=== PATIENT | male | born 1955 | race Two or more races ===

== ENCOUNTER → 2017-11-01 | Outpatient (CLI) | payer OTHER ==
--- NOTE | 2017-11-03 21:57 | MR ---
EXAMINATION TYPE: MR brain wo/w con DATE OF EXAM: 11/01/2017 COMPARISON: 10/13/2015 HISTORY: dizziness CONTRAST: Performed utilizing 8 mL intravenous Gadavist gadolinium contrast. TECHNIQUE: Multiplanar, multiecho imaging on a 3.0 Ann magnet is performed through the brain. Stud y is performed within 24 hours of arrival to the hospital. The craniovertebral junction is normal. The pituitary is small. Diffusion-weighted imaging is performed. No abnormal hyperintensity is present to suggest an acute i ntracranial infarct or acute ischemic change. There are scattered subcortical white matter changes present throughout the bilateral cerebral hemisp heres. Portion of the optic chiasm visualized appears normal. Optic nerves are unremarkable. Normal v ascular flow voids are visualized within the intracranial cerebral vasculature. Ventricles and sulci are appropriate for the patient age. No abnormal enhancement is evident following contrast administration. IMPRESSIONS: 1. Multiple scattered subcortical white matter changes are nonspecific. Findings can be related to mi crovascular ischemic change or vasculitis. Differential could include other etiologies such as gliosi s and emboli. Multiple sclerosis is not excluded but considered less likely. Findings appear stable f rom comparison of 2015.
== END | disposition home or self-care (01) ==
LOC: RADMRIMAIN 11:41
PROVIDERS: ATTEND Psychiatry & Neurology Neurology
DX: R90.89 Other abnormal findings on diagnostic imaging of central nervous system (principal); R42 Dizziness and giddiness
CPT/HCPCS: 82565; 70553; A9581

== ENCOUNTER → 2017-11-03 | Day surgery (SDC) | payer MEDICARE, OTHER ==
[2017-10-30 10:20] VITALS: BMI 31.2
[~2017-11-03] MED LIST: SODIUM CHLORIDE 0.9% 1,000 ML IV SCH
[2017-11-03 08:39] LABS: Glucose,Whole Blood 120 mg/dL (75-99)
--- NOTE | 2017-11-03 13:54 | P.PCN ---
Preoperative Diagnosis: Symptoms Recurrent dizzy spells/presyncope Twelve-lead ECG Sinus rhythm normal DE narrow QRS left anterior fascicular block normal QT interval no delta waves no epsilon waves Tilt table test per protocol Baseline blood pressure 143/74 mmHg Baseline heart rate 88 beats a minute Patient was [facility] degrees per protocol no change in heart her blood pressure and he is laid supine at the end of the procedure Impression Normal heart rate and blood pressure response to upright tilting Sinus rhythm on twelve-lead ECG the left anterior fascicular block normal QT interval Condition: stable
== END ==
LOC: CATHEP 07:18
PROVIDERS: ATTEND Internal Medicine Clinical Cardiac Electrophysiology
DX: R55 Syncope and collapse (principal)
CPT/HCPCS: 93660

== ENCOUNTER 2017-12-19 08:24 | Inpatient (IN) | payer MEDICARE, OTHER ==
[~2017-12-19 08:24] MED LIST changes: +LIDOCAINE 1% INJ 10MG/ML (20 ML MDV) ONE; +MIDAZOLAM 2 MG/2 ML VIAL ONE; +PROPOFOL 10 MG/ML 20 ML VIAL IV ONE; -SODIUM CHLORIDE 0.9% 1,000 ML IV SCH; +fentaNYL (PF) 50 MCG/ML 2 ML AMP ONE
[2017-12-19] MEDS ORDERED: ONDANSETRON 4 MG/2 ML VIAL IVP STA (08:40)
[2017-12-19] MEDS ORDERED: PANTOPRAZOLE 40 MG/10 ML VIAL IVP STA (08:40)
[2017-12-19] MEDS ORDERED: SODIUM CHLORIDE 0.9% 2,000 ML IV STA (08:40)
[2017-12-19] MEDS ORDERED: MORPHINE SULFATE 2 MG/ML SYRINGE IVP ONE (08:40)
--- NOTE | 2017-12-19 08:44 | ED ---
Nausea/Vomiting/Diarrhea HPI - General Chief complaint: Nausea/Vomiting/Diarrhea Stated complaint: vomiting Time Seen by Provider: 12/19/17 08:33 Source: patient, RN notes reviewed Mode of arrival: wheelchair Limitations: no limitations - History of Present Illness Initial comments: This is a 62-year-old male presents emergency Department chief complaint of nausea vomiting diarrhea abdominal pain for 4 days. Patient states he about this started having vomiting 4 days ago and has progressively worsened. He states that he cannot keep anything down he had no periods of time where he is improved. He states he's had no hematemesis or coffee-ground emesis. Patient states that he hurts head to toe states he has abdominal pain, back pain, chest pain, headache and dizziness. Patient states that he is in no contacts with some her symptoms. Denies any melena arm and she is a. He's had no dysuria no hematuria. Patient has a known diabetic states that he is on insulin. Patient states she has no localized pain. - Related Data Home Medications Medication Instructions Recorded Confirmed Ferrous Sulfate [Feosol] 325 mg PO DAILY 01/19/14 12/19/17 Flecainide [Tambocor] 100 mg PO BID 01/19/14 12/19/17 Folic Acid 1 mg PO DAILY 01/19/14 12/19/17 Gabapentin 600 mg PO TID 01/19/14 12/19/17 Insulin Glargine [Lantus] 10 units SQ HS 01/19/14 12/19/17 Lisinopril [Zestril] 10 mg PO DAILY 01/19/14 12/19/17 Multivitamins, Thera [Multivitamin 1 tab PO DAILY 01/19/14 12/19/17 (formulary)] Thiamine [Vitamin B-1] 100 mg PO DAILY 01/19/14 12/19/17 predniSONE 5 mg PO DAILY 01/19/14 12/19/17 Adalimumab [Humira Crohn's] 40 mg SQ Q14D 12/19/17 12/19/17 Amitriptyline HCl [Elavil] 25 mg PO HS 12/19/17 12/19/17 Ascorbic Acid [Vitamin C] 500 mg PO DAILY 12/19/17 12/19/17 Furosemide [Lasix] 40 mg PO DAILY 12/19/17 12/19/17 Glycerin/Propylene Glycol 15 ml BOTH EYES QID 10/12/18 10/12/18 [Artificial Tears Drops] HYDROcodone/APAP 10-325MG [[place] 2 tab PO QID PRN 12/19/17 12/19/17 10-325] Latanoprost/Pf [Latanoprost 0.005% 1 drop BOTH EYES HS 12/19/17 12/19/17 Eye Drop] Lidocaine [Lidoderm 5% Patch] 1 patch TRANSDERM DAILY 12/19/17 12/19/17 Melatonin 5 mg PO HS 12/19/17 12/19/17 Metoprolol Tartrate [Lopressor] 50 mg PO BID 12/19/17 12/19/17 Omeprazole 40 mg PO DAILY 12/19/17 12/19/17 Sertraline HCl [Zoloft] 100 mg PO DAILY 12/19/17 12/19/17 Simvastatin [Zocor] 10 mg PO HS 12/19/17 12/19/17 sulfaSALAzine [Azulfidine] 1,000 mg PO BID 12/19/17 12/19/17 Allergies Allergy/AdvReac Type Severity Reaction Status Date / Time No Known Allergies Allergy Verified 12/19/17 08:30 Review of Systems ROS Statement: Those systems with pertinent positive or pertinent negative responses have been documented in the HPI. ROS Other: All systems not noted in ROS Statement are negative. Past Medical History Past Medical History: Atrial Fibrillation, Chest Pain / Angina, COPD, Diabetes Mellitus, Eye Disorder, GERD/Reflux, GI Bleed, Hypertension, Liver Disease, Pneumonia, Renal Disease, Seizure Disorder, Sleep Apnea/CPAP/BIPAP Additional Past Medical History / Comment(s): see dr peñaloza's H&P. last seizure 3-4 yrs ago, was told he had the beginnings of "tunnel vision". FX VERTEBRE History of Any Multi-Drug Resistant Organisms: None Reported Past Surgical History: Back Surgery, Cholecystectomy, Orthopedic Surgery Additional Past Surgical History / Comment(s): lt shoulder arthrotomy, colonoscopy, lt rotator cuff surgery with hardware, bilat cataract, nephrectomy for kidney donation, BACK SX FOR FRACTURED DISCS(DONE IN [place]) Past Anesthesia/Blood Transfusion Reactions: No Reported Reaction Past Psychological History: Anxiety, Depression, PTSD Smoking Status: Former smoker Past Alcohol Use History: None Reported Past Drug Use History: None Reported - Past Family History Father Family Medical History: Diabetes Mellitus, Myocardial Infarction ([place]) Additional Family Medical History / Comment(s): AT AGE 87 Mother Family Medical History: No Reported History Additional Family Medical History / Comment(s): AT AGE 76 General Exam Limitations: no limitations General appearance: alert, in no apparent distress Head exam: Present: atraumatic, normocephalic, normal inspection Eye exam: Present: normal appearance, PERRL, EOMI. Absent: scleral icterus, conjunctival injection, periorbital swelling ENT exam: Present: normal oropharynx, mucous membranes dry. Absent: normal exam Neck exam: Present: normal inspection, full ROM. Absent: tenderness, meningismus, lymphadenopathy Respiratory exam: Present: normal lung sounds bilaterally. Absent: respiratory distress, wheezes, rales, rhonchi, stridor Cardiovascular Exam: Present: normal rhythm, tachycardia, normal heart sounds. Absent: systolic murmur, diastolic murmur, rubs, gallop, clicks GI/Abdominal exam: Present: soft, tenderness (Diffuse moderate), normal bowel sounds. Absent: distended, guarding, rebound, rigid Skin exam: Present: warm, dry, intact, normal color. Absent: rash Course Vital Signs 12/19/17 08:27 Temperature 96.0 F L Pulse Rate 123 H Respiratory 18 Rate Blood Pressure 132/86 O2 Sat by Pulse 96 Oximetry Medical Decision Making - Lab Data Result diagrams: 12/19/17 08:45 12/19/17 08:45 Lab Results 12/19/17 12/19/17 12/19/17 Range/Units 08:45 08:45 08:45 WBC 21.1 H (3.8-10.6) k/uL RBC 4.85 (4.30-5.90) m/uL Hgb 15.4 (13.0-17.5) gm/dL Hct 48.4 (39.0-53.0) % MCV 99.7 (80.0-100.0) fL MCH 31.8 (25.0-35.0) pg MCHC 31.9 (31.0-37.0) g/dL RDW 13.3 (11.5-15.5) % Plt Count 332 (150-450) k/uL Neutrophils % 81 % Lymphocytes % 9 % Monocytes % 7 % Eosinophils % 1 % Basophils % 0 % Neutrophils # 17.1 H (1.3-7.7) k/uL Lymphocytes # 1.9 (1.0-4.8) k/uL Monocytes # 1.5 H (0-1.0) k/uL Eosinophils # 0.1 (0-0.7) k/uL Basophils # 0.1 (0-0.2) k/uL VBG pH 7.33 (7.31-7.41) VBG pCO2 27 L (37-51) mmHg VBG HCO3 14 L (24-28) mmol/L Sodium 138 (137-145) mmol/L Potassium 4.2 (3.5-5.1) mmol/L Chloride 98 (98-107) mmol/L Carbon Dioxide 13 L (22-30) mmol/L Anion Gap 27 mmol/L BUN 40 H (9-20) mg/dL Creatinine 4.83 H (0.66-1.25) mg/dL Est GFR (CKD-EPI)AfAm 14 (>60 ml/min/1.73 sqM) Est GFR (CKD-EPI)NonAf 12 (>60 ml/min/1.73 sqM) Glucose 214 H (74-99) mg/dL POC Glucose (mg/dL) (75-99) mg/dL POC Glu [employer] ID Plasma Lactic Acid Billy (0.7-2.0) mmol/L Calcium 9.7 (8.4-10.2) mg/dL Total Bilirubin 0.6 (0.2-1.3) mg/dL AST 45 (17-59) U/L ALT 71 (21-72) U/L Alkaline Phosphatase 124 (38-126) U/L Troponin I (0.000-0.034) ng/mL Total Protein 9.5 H (6.3-8.2) g/dL Albumin 5.3 H (3.5-5.0) g/dL Amylase 108 (30-110) U/L Lipase 156 (23-300) U/L 12/19/17 12/19/17 12/19/17 Range/Units 08:45 08:45 08:47 WBC (3.8-10.6) k/uL RBC (4.30-5.90) m/uL Hgb (13.0-17.5) gm/dL Hct (39.0-53.0) % MCV (80.0-100.0) fL MCH (25.0-35.0) pg MCHC (31.0-37.0) g/dL RDW (11.5-15.5) % Plt Count (150-450) k/uL Neutrophils % % Lymphocytes % % Monocytes % % Eosinophils % % Basophils % % Neutrophils # (1.3-7.7) k/uL Lymphocytes # (1.0-4.8) k/uL Monocytes # (0-1.0) k/uL Eosinophils # (0-0.7) k/uL Basophils # (0-0.2) k/uL VBG pH (7.31-7.41) VBG pCO2 (37-51) mmHg VBG HCO3 (24-28) mmol/L Sodium (137-145) mmol/L Potassium (3.5-5.1) mmol/L Chloride (98-107) mmol/L Carbon Dioxide (22-30) mmol/L Anion Gap mmol/L BUN (9-20) mg/dL Creatinine (0.66-1.25) mg/dL Est GFR (CKD-EPI)AfAm (>60 ml/min/1.73 sqM) Est GFR (CKD-EPI)NonAf (>60 ml/min/1.73 sqM) Glucose (74-99) mg/dL POC Glucose (mg/dL) 202 H (75-99) mg/dL POC Glu [employer] ID Woodrow Ruiz Plasma Lactic Acid Billy 3.3 H* (0.7-2.0) mmol/L Calcium (8.4-10.2) mg/dL Total Bilirubin (0.2-1.3) mg/dL AST (17-59) U/L ALT (21-72) U/L Alkaline Phosphatase (38-126) U/L Troponin I 0.029 (0.000-0.034) ng/mL Total Protein (6.3-8.2) g/dL Albumin (3.5-5.0) g/dL Amylase (30-110) U/L Lipase (23-300) U/L Disposition Clinical Impression: Acute renal failure, Dehydration, Gastroparesis, Nausea & vomiting, Abdominal pain, High anion gap metabolic acidosis Disposition: ADMITTED IP TO THIS HOSP Condition: Fair Referrals: [facility],Clinic [Primary Care Provider] - 1-2 days
[2017-12-19 08:54] LABS: Glucose,Whole Blood 202 mg/dL (75-99)
[2017-12-19 08:56] LABS: Basophils # (A) 0.1 k/uL (0-0.2); Basophils % (A) 0 %; Eosinophils # (A) 0.1 k/uL (0-0.7); Eosinophils % (A) 1 %; HCT 48.4 % (39.0-53.0); HGB 15.4 gm/dL (13.0-17.5); Lymphocytes # (A) 1.9 k/uL (1.0-4.8); Lymphocytes % (A) 9 %; MCH 31.8 pg (25.0-35.0); MCHC 31.9 g/dL (31.0-37.0); MCV 99.7 fL (80.0-100.0); Mean Platelet Volume 7.4; Monocytes # (A) 1.5 k/uL (0-1.0); Monocytes % (A) 7 %; Neutrophils # (A) 17.1 k/uL (1.3-7.7); Neutrophils % (A) 81 %; Platelet Count 332 k/uL (150-450); RBC 4.85 m/uL (4.30-5.90); RDW 13.3 % (11.5-15.5); WBC 21.1 k/uL (3.8-10.6)
[2017-12-19 09:00] LABS: VBG PH 7.33 (7.31-7.41)
[2017-12-19 09:13] LABS: Albumin 5.3 g/dL (3.5-5.0); Calcium 9.7 mg/dL (8.4-10.2); Total Bilirubin 0.6 mg/dL (0.2-1.3); Total Protein 9.5 g/dL (6.3-8.2)
[2017-12-19 09:17] LABS: Potassium 4.2 mmol/L (3.5-5.1)
--- NOTE | 2017-12-19 10:04 | CT ---
EXAMINATION TYPE: CT abdomen pelvis wo con DATE OF EXAM: 12/19/2017 HISTORY: Vomiting x4 days CT DLP: 547.20 mGycm. Automated Exposure Control for Dose Reduction was Utilized. TECHNIQUE: CT scan of the abdomen and pelvis is performed without oral or IV contrast. COMPARISON: CT abdomen and pelvis February 18, 2010 FINDINGS: Within the limitations of a non-contrast study, the following observations are made. LUNG BASES: No significant abnormality is appreciated. LIVER/GB: Cholecystectomy clips are redemonstrated. PANCREAS: No significant abnormality is seen. SPLEEN: Surgical clip posterior to the spleen is redemonstrated axial image 32. ADRENALS: No significant abnormality is seen. KIDNEYS: Left kidney is not visualized and presumed surgically absent similar to prior some clips are present at level of left renal bed. BOWEL: Normal-appearing appendix is seen from cecum in the right lower quadrant. There is no suspicio us small or large bowel dilatation. There is distended stomach and prominence of the first and second portion of duodenal sweep. SMA angle does not appear suspiciously acute on sagittal image 65. GENITAL ORGANS: Prostate gland is slightly enlarged in size bulging on bladder base, underlying BPH i s felt present. No significant change from prior. LYMPH NODES: No greater than 1cm abdominal or pelvic lymph nodes are appreciated. OSSEOUS STRUCTURES: There is vacuum disc phenomenon with mild to moderate disc space narrowing L5-S1 level. Prominent Schmorl node superior L2 endplate. There is prior vertebroplasty at area of advanced compression involving the T9 vertebra and vertebroplasty involving posterior T7 vertebra that is mod erately compressed. Some right lateral extension at T9 level is noted. OTHER: No significant additional abnormality is seen. IMPRESSION: No small or large bowel obstruction is seen. Distended stomach raises concern for gastrop aresis. Distention of proximal half of duodenum raises concern for SMA syndrome though SMA angle is f elt within normal limits on CT. Consider nasogastric tube decompression.
[2017-12-19] MEDS ORDERED: HYDROmorphone 1 MG/ML 1 ML SYRINGE IVP STA (10:58)
[2017-12-19 11:04] LABS: Appearance,Urine Cloudy (Clear); Bacteria,Urine Occasional /hpf; Bilirubin,Urine Negative (Negative); Blood,Urine Moderate (Negative); Color,Urine Yellow; Glucose,Urine (UA) 1+ (Negative); Granular Casts,Urine 6 /lpf (0); Hyaline Casts,Urine 35 /lpf (0-2); Ketones,Urine Negative (Negative); Leukocyte Esterase,Urine Negative (Negative); Mucus,Urine Rare /hpf; Nitrite,Urine Negative (Negative); PH, Urine 5.5 (5.0-8.0); Protein,Urine 2+ (Negative); RBC,Urine 4 /hpf (0-5); Specific Gravity,Urine 1.019 (1.001-1.035); Urobilinogen,Urine <2.0 mg/dL (<2.0); WBC,Urine 75 /hpf (0-5); White Blood Cell Casts,Urine 23 /lpf (0)
[2017-12-19] MEDS ORDERED: NALOXONE 0.4 MG/ML 1 ML VIAL IV PRN (11:05)
[2017-12-19] MEDS ORDERED: ONDANSETRON 4 MG/2 ML VIAL IVP PRN (11:05)
[2017-12-19] MEDS ORDERED: cefTRIAXone 2,000 MG in SODIUM CHLORIDE 0.9% 100 ML IVPB STA (11:41)
[2017-12-19 12:26] LABS: Glucose,Whole Blood 114 mg/dL (75-99)
[2017-12-19] MEDS: INSULIN ASPART 100 UNIT/ML 1 ML 10 ML VIAL SQ SCH ×3 (12:36→20:53)
[2017-12-19] MEDS: SODIUM CHLORIDE 0.9% 1,000 ML IV SCH ×2 (12:37→18:46)
[2017-12-19] MEDS ORDERED: ADALIMUMAB 80 MG/1.6 ML KIT SQ SCH (13:15)
[2017-12-19] MEDS: HYDROmorphone 1 MG/ML 1 ML SYRINGE IVP PRN ×3 (15:14→21:34)
[2017-12-19] MEDS: GABAPENTIN 100 MG CAP PO SCH ×2 (15:15→21:21)
[2017-12-19] MEDS: FAMOTIDINE 20 MG/2 ML VIAL IV SCH ×2 (15:16→21:23)
--- NOTE | 2017-12-19 15:58 | P.HPIM ---
History of Present Illness 62-year-old male came to the emergency department compressive nausea vomiting diarrhea has been going on for about the right to 7 days. Patient denied any recent aromatic use C. diff will be obtained the patient is found to have highly elevated creatinine of around 4 baseline creatinine around 0.9. Patient is also on Lasix and lisinopril patient does have history of atrial fibrillation does have rheumatoid arthritis patient is on 9 immunosuppressive therapy patient does have leukocytosis denied any fever chills, hematemesis and a cheesy a patient was comparing of some epigastric abdominal burning sensation patient is on prednisone at home. Patient had a CAT scan of the abdomen which is suspicious for SMA syndrome and a distended stomach patient will need an NG tube NG tube will be placed and the probably will need a surgical consultation as well. Review of Systems REVIEW OF SYSTEMS: CONSTITUTIONAL: No fever, no malaise, no fatigue. HEENT: No recent visual problems or hearing problems. Denied any sore throat. CARDIOVASCULAR: No chest pain, orthopnea, PND, no palpitations, no syncope. PULMONARY: No shortness of breath, no cough, no hemoptysis. GASTROINTESTINAL: As mentioned in HPI NEUROLOGICAL: No headaches, no weakness, no numbness. HEMATOLOGICAL: Denies any bleeding or petechiae. GENITOURINARY: Denies any burning micturition, frequency, or urgency. MUSCULOSKELETAL/RHEUMATOLOGICAL: Denies any joint pain, swelling, or any muscle pain. ENDOCRINE: Denies any polyuria or polydipsia. The rest of the 14-point review of systems is negative. 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 History of Any Multi-Drug Resistant Organisms: None Reported Past Surgical History: Back Surgery, Cholecystectomy, Ear Surgery, Orthopedic Surgery Additional Past Surgical History / Comment(s): lt shoulder arthrotomy, colonoscopy/benign polyp, lt rotator cuff surgery with hardware, bilat cataract , L nephrectomy for kidney donation, BACK SX FOR FRACTURED DISCS(DONE IN [place]), TTT, L ear surgery-pt cannot recall type of surgery. Past Anesthesia/Blood Transfusion Reactions: No Reported Reaction Smoking Status: Former smoker - Past Family History Father Family Medical History: Diabetes Mellitus, Myocardial Infarction ([place]) Additional Family Medical History / Comment(s): AT AGE 87 Mother History Unknown: Yes Family Medical History: No Reported History Additional Family Medical History / Comment(s): AT AGE 76. Pt states his mother did not discuss her health. Medications and Allergies Home Medications Medication Instructions Recorded Confirmed Type Ferrous Sulfate [Feosol] 325 mg PO DAILY 01/19/14 12/19/17 History Flecainide [Tambocor] 100 mg PO BID 01/19/14 12/19/17 History Folic Acid 1 mg PO DAILY 01/19/14 12/19/17 History Gabapentin 600 mg PO TID 01/19/14 12/19/17 History Insulin Glargine [Lantus] 10 units SQ HS 01/19/14 12/19/17 History Lisinopril [Zestril] 10 mg PO DAILY 01/19/14 12/19/17 History Multivitamins, Thera [Multivitamin 1 tab PO DAILY 01/19/14 12/19/17 History (formulary)] Thiamine [Vitamin B-1] 100 mg PO DAILY 01/19/14 12/19/17 History predniSONE 5 mg PO DAILY 01/19/14 12/19/17 History Adalimumab [Humira Crohn's] 40 mg SQ Q14D 12/19/17 12/19/17 History Amitriptyline HCl [Elavil] 25 mg PO HS 12/19/17 12/19/17 History Ascorbic Acid [Vitamin C] 500 mg PO DAILY 12/19/17 12/19/17 History Furosemide [Lasix] 40 mg PO DAILY 12/19/17 12/19/17 History Glycerin/Propylene Glycol 15 ml BOTH EYES QID 12/19/17 12/19/17 History [Artificial Tears Drops] HYDROcodone/APAP 10-325MG [[place] 2 tab PO QID PRN 12/19/17 12/19/17 History 10-325] Latanoprost/Pf [Latanoprost 0.005% 1 drop BOTH EYES HS 12/19/17 12/19/17 History Eye Drop] Lidocaine [Lidoderm 5% Patch] 1 patch TRANSDERM DAILY 12/19/17 12/19/17 History Melatonin 5 mg PO HS 12/19/17 12/19/17 History Metoprolol Tartrate [Lopressor] 50 mg PO BID 12/19/17 12/19/17 History Omeprazole 40 mg PO DAILY 12/19/17 12/19/17 History Sertraline HCl [Zoloft] 100 mg PO DAILY 12/19/17 12/19/17 History Simvastatin [Zocor] 10 mg PO HS 12/19/17 12/19/17 History sulfaSALAzine [Azulfidine] 1,000 mg PO BID 12/19/17 12/19/17 History Allergies Allergy/AdvReac Type Severity Reaction Status Date / Time No Known Allergies Allergy Verified 12/19/17 08:30 Physical Exam Vitals: Vital Signs Temp Pulse Resp BP Pulse Ox 12/19/17 11:44 98.1 F 87 20 143/83 98 12/19/17 08:27 96.0 F L 123 H 18 132/86 96 Intake and Output 12/18/17 12/19/17 12/19/17 22:59 06:59 14:59 Other: Voiding Method Toilet Weight 78.471 kg PHYSICAL EXAMINATION: GENERAL: The patient is alert and oriented x3, not in any acute distress. Well developed, well nourished. HEENT: Pupils are round and equally reacting to light. EOMI. No scleral icterus. No conjunctival pallor. Normocephalic, atraumatic. No pharyngeal erythema. No thyromegaly. CARDIOVASCULAR: S1 and S2 present. No murmurs, rubs, or gallops. PULMONARY: Chest is clear to auscultation, no wheezing or crackles. ABDOMEN: There is little bit of distention no significant tenderness no rebound or rigidity. MUSCULOSKELETAL: No joint swelling or deformity. EXTREMITIES: No cyanosis, clubbing, or pedal edema. NEUROLOGICAL: Gross neurological examination did not reveal any focal deficits. SKIN: No rashes. Results CBC & Chem 7: 12/19/17 08:45 12/19/17 08:45 Labs: Abnormal Lab Results - Last 24 Hours (Table) 18 12/19/17 12/19/17 Range/Units 08:45 08:45 08:45 WBC 21.1 H (3.8-10.6) k/uL Neutrophils # 17.1 H (1.3-7.7) k/uL Monocytes # 1.5 H (0-1.0) k/uL VBG pCO2 27 L (37-51) mmHg VBG HCO3 14 L (24-28) mmol/L Carbon Dioxide 13 L (22-30) mmol/L BUN 40 H (9-20) mg/dL Creatinine 4.83 H (0.66-1.25) mg/dL Glucose 214 H (74-99) mg/dL POC Glucose (mg/dL) (75-99) mg/dL Plasma Lactic Acid Billy (0.7-2.0) mmol/L Total Protein 9.5 H (6.3-8.2) g/dL Albumin 5.3 H (3.5-5.0) g/dL Urine Protein (Negative) Urine Glucose (UA) (Negative) Urine Blood (Negative) Urine WBC (0-5) /hpf Urine WBC Clumps (None) /hpf Urine Bacteria (None) /hpf Hyaline Casts (0-2) /lpf Urine Mucus (None) /hpf 18 12/19/17 12/19/17 Range/Units 08:45 08:47 10:25 WBC (3.8-10.6) k/uL Neutrophils # (1.3-7.7) k/uL Monocytes # (0-1.0) k/uL VBG pCO2 (37-51) mmHg VBG HCO3 (24-28) mmol/L Carbon Dioxide (22-30) mmol/L BUN (9-20) mg/dL Creatinine (0.66-1.25) mg/dL Glucose (74-99) mg/dL POC Glucose (mg/dL) 202 H (75-99) mg/dL Plasma Lactic Acid Billy 3.3 H* (0.7-2.0) mmol/L Total Protein (6.3-8.2) g/dL Albumin (3.5-5.0) g/dL Urine Protein 2+ H (Negative) Urine Glucose (UA) 1+ H (Negative) Urine Blood Moderate H (Negative) Urine WBC 75 H (0-5) /hpf Urine WBC Clumps Many H (None) /hpf Urine Bacteria Occasional H (None) /hpf Hyaline Casts 35 H (0-2) /lpf Urine Mucus Rare H (None) /hpf 12/19/17 Range/Units 12:05 WBC (3.8-10.6) k/uL Neutrophils # (1.3-7.7) k/uL Monocytes # (0-1.0) k/uL VBG pCO2 (37-51) mmHg VBG HCO3 (24-28) mmol/L Carbon Dioxide (22-30) mmol/L BUN (9-20) mg/dL Creatinine (0.66-1.25) mg/dL Glucose (74-99) mg/dL POC Glucose (mg/dL) 114 H (75-99) mg/dL Plasma Lactic Acid Billy (0.7-2.0) mmol/L Total Protein (6.3-8.2) g/dL Albumin (3.5-5.0) g/dL Urine Protein (Negative) Urine Glucose (UA) (Negative) Urine Blood (Negative) Urine WBC (0-5) /hpf Urine WBC Clumps (None) /hpf Urine Bacteria (None) /hpf Hyaline Casts (0-2) /lpf Urine Mucus (None) /hpf Thrombosis Risk Factor Assmnt - Choose All That Apply Any of the Below Risk Factors Present?: Yes Each Factor Represents 1 point: Abnormal pulmonary function (COPD), Obesity ( BMI >25) Other Risk Factors: Yes Each Risk Factor Represents 2 Points: Age 61-74 years Other congenital or acquired thrombophilia - If yes, enter type in comment: No Thrombosis Risk Factor Assessment Total Risk Factor Score: 4 Thrombosis Risk Factor Assessment Level: Moderate Risk Assessment and Plan Plan: -Nausea vomiting: Possibly of SMA syndrome. NG tube will replace surgery will be consulted. Patient is also company of odynophagia concern for esophagitis specifically families waited is although patient does not have any oral thrush. -Abdominal pain possibly secondary to SMA syndrome or peptic ulcer disease. Gastric body will be consulted patient will be started on Pepcid instead of proton pump limited considering his poor renal function -Acute renal failure secondary to nausea vomiting diarrhea prerenal azotemia patient was started on IV fluids next and-lactic acidosis due to severe intravascular depletion improved now with IV fluid resuscitation -Diarrhea: We will rule out C. diff -Type 2 diabetes mellitus: Patient will be started on sliding scale insulin discontinue Lantus as patient is in a BNP 1 patient is a low-dose of Lantus -Rheumatoid arthritis: Patient is on immunosuppressive therapy which will be continued along with prednisone -Hyperlipidemia -Atrial fibrillation: Presently rate controlled when I may not be able to start him on anticoagulation considering that patient will have an NG tube at this time -Seizure disorder -Sleep apnea on continuous CPAP machine
[2017-12-19 17:04] LABS: Glucose,Whole Blood 125 mg/dL (75-99)
[2017-12-19] MEDS ORDERED: ZOLPIDEM 5 MG TAB PO PRN (19:32)
[2017-12-19] MEDS: BENZOCAINE SPRAY 1 CAN MUCOUS MEM PRN ×2 (19:35→21:21)
[2017-12-19 20:40] LABS: Glucose,Whole Blood 119 mg/dL (75-99)
[2017-12-19] MEDS: sulfaSALAzine 500 MG TAB PO SCH (21:22)
[2017-12-19] MEDS: LATANOPROST 0.005% OPHTH DROPS 2.5 ML BTL BOTH EYES SCH (21:22)
[2017-12-19] MEDS: MELATONIN 5 MG TABLET PO SCH (21:22)
[2017-12-19] MEDS: ATORVASTATIN 10 MG TAB PO SCH (21:23)
[2017-12-19] MEDS: METOPROLOL TARTRATE 50 MG TAB PO SCH (21:23)
[2017-12-19] MEDS: FLECAINIDE 50 MG TAB PO SCH (21:23)
[2017-12-19] MEDS: AMITRIPTYLINE HCL 25 MG TAB PO SCH (21:23)
[2017-12-20] MEDS: HYDROmorphone 1 MG/ML 1 ML SYRINGE IVP PRN ×7 (00:10→21:31)
[2017-12-20 05:58] LABS: Glucose,Whole Blood 117 mg/dL (75-99)
[2017-12-20] MEDS: INSULIN ASPART 100 UNIT/ML 1 ML 10 ML VIAL SQ SCH ×4 (06:10→20:52)
[2017-12-20 07:12] LABS: Calcium 8.3 mg/dL (8.4-10.2); Potassium 4.8 mmol/L (3.5-5.1)
[2017-12-20 07:56] LABS: HCT 39.3 % (39.0-53.0); MCHC 31.6 g/dL (31.0-37.0); MCV 101.1 fL (80.0-100.0); Mean Platelet Volume 7.3; Platelet Count 236 k/uL (150-450); RBC 3.89 m/uL (4.30-5.90); RDW 13.2 % (11.5-15.5); WBC 19.4 k/uL (3.8-10.6)
[2017-12-20 08:01] LABS: HGB 12.4 gm/dL (13.0-17.5)
[2017-12-20] MEDS: SODIUM CHLORIDE 0.9% 1,000 ML IV SCH ×2 (08:14→11:35)
[2017-12-20] MEDS: MULTIVITAMINS, THERA 1 EACH TAB PO SCH (08:14)
[2017-12-20] MEDS: FOLIC ACID 1 MG TAB PO SCH (08:16)
[2017-12-20] MEDS: THIAMINE 100 MG TAB PO SCH (08:16)
[2017-12-20] MEDS: LIDOCAINE 5% PATCH TOPICAL SCH (08:22)
[2017-12-20] MEDS: FAMOTIDINE 20 MG/2 ML VIAL IV SCH ×2 (08:22→21:33)
[2017-12-20] MEDS: BENZOCAINE SPRAY 1 CAN MUCOUS MEM PRN ×3 (08:22→21:32)
[2017-12-20] MEDS: sulfaSALAzine 500 MG TAB PO SCH ×2 (08:22→21:33)
[2017-12-20] MEDS: FLECAINIDE 50 MG TAB PO SCH ×2 (08:23→21:32)
[2017-12-20] MEDS: GABAPENTIN 100 MG CAP PO SCH ×3 (08:23→21:33)
[2017-12-20] MEDS: METOPROLOL TARTRATE 50 MG TAB PO SCH ×2 (08:23→21:33)
[2017-12-20] MEDS: predniSONE 5 MG TAB PO SCH (08:24)
--- NOTE | 2017-12-20 09:07 | P.GSCN ---
History of Present Illness Consult date: 12/20/17 Reason for Consult: Possible gastric obstruction History of present illness: This a 62-year-old male who was admitted to the hospital with a 45 day history of nausea vomiting and epigastric dull pain. Patient was seen in the emergency room and on CAT scan as well as have a dilated stomach. And dilated proximal duodenum. This was suggestive of possible SMA syndrome. The patient states that he has had nausea vomiting for several days. His BMI is 28. 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 History of Any Multi-Drug Resistant Organisms: None Reported Past Surgical History: Back Surgery, Cholecystectomy, Ear Surgery, Orthopedic Surgery Additional Past Surgical History / Comment(s): lt shoulder arthrotomy, colonoscopy/benign polyp, lt rotator cuff surgery with hardware, bilat cataract , L nephrectomy for kidney donation, BACK SX FOR FRACTURED DISCS(DONE IN [place]), TTT, L ear surgery-pt cannot recall type of surgery. Past Anesthesia/Blood Transfusion Reactions: No Reported Reaction Smoking Status: Former smoker - Past Family History Father Family Medical History: Diabetes Mellitus, Myocardial Infarction ([place]) Additional Family Medical History / Comment(s): AT AGE 87 Mother History Unknown: Yes Family Medical History: No Reported History Additional Family Medical History / Comment(s): AT AGE 76. Pt states his mother did not discuss her health. Medications and Allergies Home Medications Medication Instructions Recorded Confirmed Type Ferrous Sulfate [Feosol] 325 mg PO DAILY 01/19/14 12/19/17 History Flecainide [Tambocor] 100 mg PO BID 01/19/14 12/19/17 History Folic Acid 1 mg PO DAILY 01/19/14 12/19/17 History Gabapentin 600 mg PO TID 01/19/14 12/19/17 History Insulin Glargine [Lantus] 10 units SQ HS 01/19/14 12/19/17 History Lisinopril [Zestril] 10 mg PO DAILY 01/19/14 12/19/17 History Multivitamins, Thera [Multivitamin 1 tab PO DAILY 01/19/14 12/19/17 History (formulary)] Thiamine [Vitamin B-1] 100 mg PO DAILY 01/19/14 12/19/17 History predniSONE 5 mg PO DAILY 01/19/14 12/19/17 History Adalimumab [Humira Crohn's] 40 mg SQ Q14D 12/19/17 12/19/17 History Amitriptyline HCl [Elavil] 25 mg PO HS 12/19/17 12/19/17 History Ascorbic Acid [Vitamin C] 500 mg PO DAILY 12/19/17 12/19/17 History Furosemide [Lasix] 40 mg PO DAILY 12/19/17 12/19/17 History Glycerin/Propylene Glycol 15 ml BOTH EYES QID 12/19/17 12/19/17 History [Artificial Tears Drops] HYDROcodone/APAP 10-325MG [[place] 2 tab PO QID PRN 12/19/17 12/19/17 History 10-325] Latanoprost/Pf [Latanoprost 0.005% 1 drop BOTH EYES HS 12/19/17 12/19/17 History Eye Drop] Lidocaine [Lidoderm 5% Patch] 1 patch TRANSDERM DAILY 12/19/17 12/19/17 History Melatonin 5 mg PO HS 12/19/17 12/19/17 History Metoprolol Tartrate [Lopressor] 50 mg PO BID 12/19/17 12/19/17 History Omeprazole 40 mg PO DAILY 12/19/17 12/19/17 History Sertraline HCl [Zoloft] 100 mg PO DAILY 12/19/17 12/19/17 History Simvastatin [Zocor] 10 mg PO HS 12/19/17 12/19/17 History sulfaSALAzine [Azulfidine] 1,000 mg PO BID 12/19/17 12/19/17 History Allergies Allergy/AdvReac Type Severity Reaction Status Date / Time No Known Allergies Allergy Verified 12/19/17 08:30 Surgical - Exam Vital Signs Temp Pulse Resp BP Pulse Ox 96.0 F L 123 H 18 132/86 96 12/19/17 08:27 12/19/17 08:27 12/19/17 08:27 12/19/17 08:27 12/19/17 08:27 - General well developed, no distress - Eyes PERRL - ENT normal pinna - Neck no masses - Respiratory normal expansion - Cardiovascular Rhythm: regular - Abdomen Mild epigastric pain Abdomen: soft Results - Labs 12/20/17 06:44 12/20/17 06:44 Abnormal Lab Results - Last 24 Hours (Table) 12/19/17 12/19/17 12/19/17 Range/Units 08:45 08:45 10:25 WBC (3.8-10.6) k/uL RBC (4.30-5.90) m/uL Hgb (13.0-17.5) gm/dL MCV (80.0-100.0) fL Carbon Dioxide 13 L (22-30) mmol/L BUN 40 H (9-20) mg/dL Creatinine 4.83 H (0.66-1.25) mg/dL Glucose 214 H (74-99) mg/dL POC Glucose (mg/dL) (75-99) mg/dL Plasma Lactic Acid Billy 3.3 H* (0.7-2.0) mmol/L Calcium (8.4-10.2) mg/dL Total Protein 9.5 H (6.3-8.2) g/dL Albumin 5.3 H (3.5-5.0) g/dL Urine Protein 2+ H (Negative) Urine Glucose (UA) 1+ H (Negative) Urine Blood Moderate H (Negative) Urine WBC 75 H (0-5) /hpf Urine WBC Clumps Many H (None) /hpf Urine Bacteria Occasional H (None) /hpf Hyaline Casts 35 H (0-2) /lpf Urine Mucus Rare H (None) /hpf 12/19/17 12/19/17 12/19/17 Range/Units 12:05 16:43 20:38 WBC (3.8-10.6) k/uL RBC (4.30-5.90) m/uL Hgb (13.0-17.5) gm/dL MCV (80.0-100.0) fL Carbon Dioxide (22-30) mmol/L BUN (9-20) mg/dL Creatinine (0.66-1.25) mg/dL Glucose (74-99) mg/dL POC Glucose (mg/dL) 114 H 125 H 119 H (75-99) mg/dL Plasma Lactic Acid Billy (0.7-2.0) mmol/L Calcium (8.4-10.2) mg/dL Total Protein (6.3-8.2) g/dL Albumin (3.5-5.0) g/dL Urine Protein (Negative) Urine Glucose (UA) (Negative) Urine Blood (Negative) Urine WBC (0-5) /hpf Urine WBC Clumps (None) /hpf Urine Bacteria (None) /hpf Hyaline Casts (0-2) /lpf Urine Mucus (None) /hpf 12/20/17 12/20/17 12/20/17 Range/Units 05:56 06:44 06:44 WBC 19.4 H (3.8-10.6) k/uL RBC 3.89 L (4.30-5.90) m/uL Hgb 12.4 L D (13.0-17.5) gm/dL MCV 101.1 H (80.0-100.0) fL Carbon Dioxide 20 L (22-30) mmol/L BUN 33 H (9-20) mg/dL Creatinine 2.14 H (0.66-1.25) mg/dL Glucose 100 H (74-99) mg/dL POC Glucose (mg/dL) 117 H (75-99) mg/dL Plasma Lactic Acid Billy (0.7-2.0) mmol/L Calcium 8.3 L (8.4-10.2) mg/dL Total Protein (6.3-8.2) g/dL Albumin (3.5-5.0) g/dL Urine Protein (Negative) Urine Glucose (UA) (Negative) Urine Blood (Negative) Urine WBC (0-5) /hpf Urine WBC Clumps (None) /hpf Urine Bacteria (None) /hpf Hyaline Casts (0-2) /lpf Urine Mucus (None) /hpf Diabetes panel 12/19/17 12/20/17 Range/Units 08:45 06:44 Sodium 138 138 (137-145) mmol/L Potassium 4.2 4.8 (3.5-5.1) mmol/L Chloride 98 106 (98-107) mmol/L Carbon Dioxide 13 L 20 L (22-30) mmol/L BUN 40 H 33 H (9-20) mg/dL Creatinine 4.83 H 2.14 H (0.66-1.25) mg/dL Glucose 214 H 100 H (74-99) mg/dL Calcium 9.7 8.3 L (8.4-10.2) mg/dL AST 45 (17-59) U/L ALT 71 (21-72) U/L Alkaline Phosphatase 124 (38-126) U/L Total Protein 9.5 H (6.3-8.2) g/dL Albumin 5.3 H (3.5-5.0) g/dL Calcium panel 12/19/17 12/20/17 Range/Units 08:45 06:44 Calcium 9.7 8.3 L (8.4-10.2) mg/dL Albumin 5.3 H (3.5-5.0) g/dL Pituitary panel 12/19/17 12/20/17 Range/Units 08:45 06:44 Sodium 138 138 (137-145) mmol/L Potassium 4.2 4.8 (3.5-5.1) mmol/L Chloride 98 106 (98-107) mmol/L Carbon Dioxide 13 L 20 L (22-30) mmol/L BUN 40 H 33 H (9-20) mg/dL Creatinine 4.83 H 2.14 H (0.66-1.25) mg/dL Glucose 214 H 100 H (74-99) mg/dL Calcium 9.7 8.3 L (8.4-10.2) mg/dL Adrenal panel 12/19/17 12/20/17 Range/Units 08:45 06:44 Sodium 138 138 (137-145) mmol/L Potassium 4.2 4.8 (3.5-5.1) mmol/L Chloride 98 106 (98-107) mmol/L Carbon Dioxide 13 L 20 L (22-30) mmol/L BUN 40 H 33 H (9-20) mg/dL Creatinine 4.83 H 2.14 H (0.66-1.25) mg/dL Glucose 214 H 100 H (74-99) mg/dL Calcium 9.7 8.3 L (8.4-10.2) mg/dL Total Bilirubin 0.6 (0.2-1.3) mg/dL AST 45 (17-59) U/L ALT 71 (21-72) U/L Alkaline Phosphatase 124 (38-126) U/L Total Protein 9.5 H (6.3-8.2) g/dL Albumin 5.3 H (3.5-5.0) g/dL Assessment and Plan Assessment: Dilated stomach and proximal duodenum. Patient will be scheduled for EGD on Friday. He'll continue to remain nothing by mouth with NG tube.
[2017-12-20 11:54] LABS: Glucose,Whole Blood 97 mg/dL (75-99)
--- NOTE | 2017-12-20 12:08 | P.NPCON ---
History of Present Illness - Reason for Consult Consult date: 12/20/17 acute renal failure - Chief Complaint LIZ - History of Present Illness This is a 62-year-old male seen in consultation because of acute kidney injury. He presented to the emergency room with 7 days of nausea vomiting diarrhea. No blood in the stools. No fever chills. He has had significant abdominal discomfort and pain. The diarrhea continues he has an NG tube. The pain is continuing. No fever chills. He is a kidney donor to his son and left kidney is absent for this reason. His son suffered from some postinfectious possible complication and needing a kidney transplant. This was not any head or treated disease. Is also known with diabetes for approximately last 10 years, rheumatoid arthritis on Humira and has had possibly a heart problem but is not sure of this. Known with seizure disorder also. His baseline creatinine 1 on 11/01/2017 came in with a creatinine of 4.83. 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 History of Any Multi-Drug Resistant Organisms: None Reported Past Surgical History: Back Surgery, Cholecystectomy, Ear Surgery, Orthopedic Surgery Additional Past Surgical History / Comment(s): lt shoulder arthrotomy, colonoscopy/benign polyp, lt rotator cuff surgery with hardware, bilat cataract , L nephrectomy for kidney donation, BACK SX FOR FRACTURED DISCS(DONE IN [place]), TTT, L ear surgery-pt cannot recall type of surgery. Past Anesthesia/Blood Transfusion Reactions: No Reported Reaction Smoking Status: Former smoker - Past Family History Father Family Medical History: Diabetes Mellitus, Myocardial Infarction ([place]) Additional Family Medical History / Comment(s): AT AGE 87 Mother History Unknown: Yes Family Medical History: No Reported History Additional Family Medical History / Comment(s): AT AGE 76. Pt states his mother did not discuss her health. Medications and Allergies Home Medications Medication Instructions Recorded Confirmed Type Ferrous Sulfate [Feosol] 325 mg PO DAILY 01/19/14 12/19/17 History Flecainide [Tambocor] 100 mg PO BID 01/19/14 12/19/17 History Folic Acid 1 mg PO DAILY 01/19/14 12/19/17 History Gabapentin 600 mg PO TID 01/19/14 12/19/17 History Insulin Glargine [Lantus] 10 units SQ HS 01/19/14 12/19/17 History Lisinopril [Zestril] 10 mg PO DAILY 01/19/14 12/19/17 History Multivitamins, Thera [Multivitamin 1 tab PO DAILY 01/19/14 12/19/17 History (formulary)] Thiamine [Vitamin B-1] 100 mg PO DAILY 01/19/14 12/19/17 History predniSONE 5 mg PO DAILY 01/19/14 12/19/17 History Adalimumab [Humira Crohn's] 40 mg SQ Q14D 12/19/17 12/19/17 History Amitriptyline HCl [Elavil] 25 mg PO HS 12/19/17 12/19/17 History Ascorbic Acid [Vitamin C] 500 mg PO DAILY 12/19/17 12/19/17 History Furosemide [Lasix] 40 mg PO DAILY 12/19/17 12/19/17 History Glycerin/Propylene Glycol 15 ml BOTH EYES QID 12/19/17 12/19/17 History [Artificial Tears Drops] HYDROcodone/APAP 10-325MG [[place] 2 tab PO QID PRN 12/19/17 12/19/17 History 10-325] Latanoprost/Pf [Latanoprost 0.005% 1 drop BOTH EYES HS 12/19/17 12/19/17 History Eye Drop] Lidocaine [Lidoderm 5% Patch] 1 patch TRANSDERM DAILY 12/19/17 12/19/17 History Melatonin 5 mg PO HS 12/19/17 12/19/17 History Metoprolol Tartrate [Lopressor] 50 mg PO BID 12/19/17 12/19/17 History Omeprazole 40 mg PO DAILY 12/19/17 12/19/17 History Sertraline HCl [Zoloft] 100 mg PO DAILY 12/19/17 12/19/17 History Simvastatin [Zocor] 10 mg PO HS 12/19/17 12/19/17 History sulfaSALAzine [Azulfidine] 1,000 mg PO BID 12/19/17 12/19/17 History Allergies Allergy/AdvReac Type Severity Reaction Status Date / Time No Known Allergies Allergy Verified 12/19/17 08:30 Physical Exam Vitals: Vital Signs Temp Pulse Resp BP Pulse Ox 12/20/17 08:00 98.7 F 73 18 105/59 97 12/20/17 03:54 82 14 121/68 93 L 12/19/17 23:50 98.0 F 77 115/66 93 L 12/19/17 20:56 97.5 F L 111 H 152/68 92 L 12/19/17 16:00 97.7 F 111 H 18 128/78 94 L 12/19/17 11:55 99.2 F 109 H 18 129/82 95 Intake and Output 12/19/17 12/20/17 12/20/17 22:59 06:59 14:59 Intake Total 800 0 Output Total 500 300 Balance 300 -300 Intake: Intake, IV Titration 800 Amount Sodium Chloride 0.9% 1, 800 000 ml @ 100 mls/hr IV . Q10H [facility] Rx#:[id number] Oral 0 Output: Gastric Drainage 500 Urine 300 Other: Voiding Method Toilet Toilet Toilet # Voids 1 Weight 78.471 kg 76 kg On examination his in pain and in bed. HEENT exam no JVP neck is supple no facial asymmetry no carotid bruit. Lungs are clear to auscultation fair air entry bilaterally Heart sounds are unremarkable for any murmur rub gallop Abdomen is soft and scaphoid nondistended but tender on deep palpation. No rebound no masses felt. Extremity exam was no edema Warm to touch Neurologically awake alert oriented Results - Lab Results Most recent lab results Calcium 8.3 mg/dL (8.4-10.2) L 12/20/17 06:44 12/20/17 06:44 12/20/17 06:44 Assessment and Plan Assessment: Impression 1. Acute kidney injury from nausea vomiting diarrhea. Baseline creatinine is 1 on 11/01/2017 presented with creatinine of 4. ATN has improved to 2.14 with hydration. 2. 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 Baseline creatinine though is 1 dated 11/01 3. Metabolic acidosis with a bicarb of 13 and a gap of 27 secondary to acute kidney injury and diarrhea. Bicarb improved to 20 with a gap 27 down to 12 this morning. Blood sugars have been reasonably well controlled. 4. Admitted with abdominal pain nausea vomiting diarrhea with possible mesenteric ischemic bowel based on CT findings. 4. History of liver disease unclear as to the details 5. Rheumatoid arthritis on Humira. 6. History of seizure disorder. 7. History of obstructive sleep.Not on any home oxygen. 8. History of diabetes mellitus well-controlled supposedly but with proteinuria , and pyuria. 9. Pyuria and WBCs casts rule out urinary tract infection cultures are pending so far negative followed up. Recommendation. 1. Maintain IV fluids at 100 mL an hour as his creatinine is improving there is no need to increase it. 2. Patient is on sulfasalazine will watch for now. 3. Ensure strict I's and O's and positive fluid balance. 4. Watch bicarb as is getting better this is no need to start oral bicarb at this time Thank you for this consultation we'll continue to follow with you
--- NOTE | 2017-12-20 15:04 | P.PN ---
Subjective 61-year-old admitted secondary to acute renal failure from nausea vomiting and the patient is found to have possible small bowel obstruction or SMA syndrome. . Patient doesn't have any significant drainage creatinine improved. Constitutional: Denied any fatigue denied any fever. Cardio vascular: denied any chest pain, palpitations Pulmonary: Denied any shortness of breath cough Neurologic denied any new focal deficits Objective - Vital Signs Vital signs: Vital Signs Temp 98.6 F 12/20/17 12:00 Pulse 72 12/20/17 12:00 Resp 18 12/20/17 12:00 BP 109/60 12/20/17 12:00 Pulse Ox 93 L 12/20/17 12:00 Intake & Output 12/19/17 12/20/17 12/20/17 18:59 06:59 18:59 Intake Total 0 800 0 Output Total 500 300 Balance 0 300 -300 Weight 78.471 kg 76 kg Intake: Intake, IV Titration 800 Amount Sodium Chloride 0.9% 1, 800 000 ml @ 100 mls/hr IV . Q10H [facility] Rx#:[id number] Oral 0 0 Output: Gastric Drainage 500 Urine 300 Other: Voiding Method Toilet Toilet Toilet # Voids 1 1 - Exam PHYSICAL EXAMINATION: GENERAL: The patient is alert and oriented x3, not in any acute distress. Well developed, well nourished. HEENT: Pupils are round and equally reacting to light. EOMI. No scleral icterus. No conjunctival pallor. Normocephalic, atraumatic. No pharyngeal erythema. No thyromegaly. CARDIOVASCULAR: S1 and S2 present. No murmurs, rubs, or gallops. PULMONARY: Chest is clear to auscultation, no wheezing or crackles. ABDOMEN: Nondistended does have an NG tube in place no significant drainage today patient had coffee-ground emesis as today MUSCULOSKELETAL: No joint swelling or deformity. EXTREMITIES: No cyanosis, clubbing, or pedal edema. NEUROLOGICAL: Gross neurological examination did not reveal any focal deficits. SKIN: No rashes. - Labs CBC & Chem 7: 12/20/17 06:44 12/20/17 06:44 Labs: Abnormal Lab Results - Last 24 Hours (Table) 12/19/17 12/19/17 12/20/17 Range/Units 16:43 20:38 05:56 WBC (3.8-10.6) k/uL RBC (4.30-5.90) m/uL Hgb (13.0-17.5) gm/dL MCV (80.0-100.0) fL Carbon Dioxide (22-30) mmol/L BUN (9-20) mg/dL Creatinine (0.66-1.25) mg/dL Glucose (74-99) mg/dL POC Glucose (mg/dL) 125 H 119 H 117 H (75-99) mg/dL Calcium (8.4-10.2) mg/dL 12/20/17 12/20/17 Range/Units 06:44 06:44 WBC 19.4 H (3.8-10.6) k/uL RBC 3.89 L (4.30-5.90) m/uL Hgb 12.4 L D (13.0-17.5) gm/dL MCV 101.1 H (80.0-100.0) fL Carbon Dioxide 20 L (22-30) mmol/L BUN 33 H (9-20) mg/dL Creatinine 2.14 H (0.66-1.25) mg/dL Glucose 100 H (74-99) mg/dL POC Glucose (mg/dL) (75-99) mg/dL Calcium 8.3 L (8.4-10.2) mg/dL Microbiology - Last 24 Hours (Table) 12/20/17 00:15 Urine Culture - Preliminary Urine,Voided Assessment and Plan Plan: -Nausea vomiting: Possibly of SMA syndrome. NG tube in place abdominal distention significantly. -Abdominal pain possibly secondary to SMA syndrome or peptic ulcer disease. Gastroneurology evaluated the patient. -Acute renal failure secondary to nausea vomiting diarrhea prerenal azotemia patient was started on IV fluids next and-lactic acidosis due to severe intravascular depletion improved now with IV fluid resuscitation to my improved creatinine now, lactic acidosis improved -Diarrhea: Diarrhea improved because of which we're unable to get any stool sample for C. diff -Type 2 diabetes mellitus: Patient will be started on sliding scale insulin as patient is nothing by mouth Lantus is being discontinued and patient is on low- dose of Lantus -Rheumatoid arthritis: Patient is on immunosuppressive therapy which will be continued along with prednisone -Hyperlipidemia -Atrial fibrillation: Presently rate controlled when I may not be able to start him on anticoagulation considering that patient will have an NG tube at this time -Seizure disorder -Sleep apnea on continuous CPAP machine
[2017-12-20 17:09] LABS: Glucose,Whole Blood 84 mg/dL (75-99)
[2017-12-20 20:25] LABS: Glucose,Whole Blood 72 mg/dL (75-99)
[2017-12-20] MEDS: MELATONIN 5 MG TABLET PO SCH (21:32)
[2017-12-20] MEDS: ATORVASTATIN 10 MG TAB PO SCH (21:32)
[2017-12-20] MEDS: AMITRIPTYLINE HCL 25 MG TAB PO SCH (21:32)
[2017-12-20] MEDS: LATANOPROST 0.005% OPHTH DROPS 2.5 ML BTL BOTH EYES SCH (21:34)
[2017-12-20 23:07] LABS: Glucose,Whole Blood 84 mg/dL (75-99)
[2017-12-21] MEDS: HYDROmorphone 1 MG/ML 1 ML SYRINGE IVP PRN ×5 (00:15→16:59)
--- NOTE | 2017-12-21 00:46 | XR ---
EXAMINATION TYPE: XR chest 1V portable DATE OF EXAM: 12/21/2017 COMPARISON: 07/21/2014 HISTORY: NG tube placement TECHNIQUE: Single frontal view of the chest is obtained. FINDINGS: There is poor expiration. There is nasogastric tube with the tip looped in the gastric fun dus. There is no heart failure. Lungs appear clear of consolidation. There is no sign of pleural effu betty. Thoracic vertebroplasty is noted. IMPRESSION: NG tube appears in good position. Poor inspiration similar to old exam.
[2017-12-21] MEDS: SODIUM CHLORIDE 0.9% 1,000 ML IV SCH ×2 (03:53→10:26)
[2017-12-21 05:19] LABS: Glucose,Whole Blood 68 mg/dL (75-99)
[2017-12-21] MEDS ORDERED: DEXTROSE 50%-WATER 50 ML SYRINGE IVP ONE (05:26)
[2017-12-21] MEDS: INSULIN ASPART 100 UNIT/ML 1 ML 10 ML VIAL SQ SCH ×3 (05:36→17:04)
[2017-12-21 05:39] LABS: Basophils % (A) 0 %; Eosinophils # (A) 0.1 k/uL (0-0.7); Eosinophils % (A) 1 %; HCT 32.7 % (39.0-53.0); HGB 10.8 gm/dL (13.0-17.5); Lymphocytes # (A) 1.5 k/uL (1.0-4.8); Lymphocytes % (A) 15 %; MCH 32.8 pg (25.0-35.0); MCV 99.6 fL (80.0-100.0); Mean Platelet Volume 7.1; Monocytes # (A) 0.8 k/uL (0-1.0); Monocytes % (A) 7 %; Neutrophils # (A) 7.6 k/uL (1.3-7.7); Neutrophils % (A) 75 %; Platelet Count 202 k/uL (150-450); RBC 3.28 m/uL (4.30-5.90); RDW 13.1 % (11.5-15.5); WBC 10.2 k/uL (3.8-10.6)
[2017-12-21 05:51] LABS: Calcium 8.2 mg/dL (8.4-10.2); Potassium 4.1 mmol/L (3.5-5.1)
[2017-12-21 06:03] LABS: Glucose,Whole Blood 122 mg/dL (75-99)
[2017-12-21] MEDS: BENZOCAINE SPRAY 1 CAN MUCOUS MEM PRN ×2 (08:18→13:54)
[2017-12-21] MEDS: sulfaSALAzine 500 MG TAB PO SCH ×2 (08:19→21:47)
[2017-12-21] MEDS: FLECAINIDE 50 MG TAB PO SCH ×2 (08:19→21:46)
[2017-12-21] MEDS: LIDOCAINE 5% PATCH TOPICAL SCH (08:19)
[2017-12-21] MEDS: FOLIC ACID 1 MG TAB PO SCH (08:20)
[2017-12-21] MEDS: FAMOTIDINE 20 MG/2 ML VIAL IV SCH ×2 (08:20→21:46)
[2017-12-21] MEDS: GABAPENTIN 100 MG CAP PO SCH ×3 (08:20→21:47)
[2017-12-21] MEDS: METOPROLOL TARTRATE 50 MG TAB PO SCH ×2 (08:20→21:48)
[2017-12-21] MEDS: THIAMINE 100 MG TAB PO SCH (08:21)
[2017-12-21] MEDS: MULTIVITAMINS, THERA 1 EACH TAB PO SCH (08:21)
[2017-12-21] MEDS: predniSONE 5 MG TAB PO SCH (08:21)
[2017-12-21 08:49] VITALS: RESP 18
--- NOTE | 2017-12-21 09:11 | P.PN ---
Subjective Progress Note Date: 12/21/17 Principal diagnosis: This is a 62-year-old male seen in consultation because of acute kidney injury. He is a kidney donor to his son and left kidney is absent for this reason. His son suffered from some postinfectious possible complication and needing a kidney transplant. No history of inherited. disease disease. He presented to the emergency room with 7 days of nausea vomiting diarrhea. No blood in the stools. No fever chills. He has had significant abdominal discomfort and pain. The diarrhea continues and he has an NG tube. The pain is continuing. No fever chills. Computed tomography scan shows possible ischemic bowel Is also known with diabetes for approximately last 10 years, rheumatoid arthritis on Humira and has had possibly a heart problem but is not sure of this. Known with seizure disorder also. His baseline creatinine 1 on 11/01/2017 came in with a creatinine of 4.83. Objective - Vital Signs Vital signs: Vital Signs Temp 98.6 F 12/21/17 08:00 Pulse 77 12/21/17 08:00 Resp 18 12/21/17 08:00 BP 187/85 12/21/17 08:00 Pulse Ox 96 12/21/17 08:00 Intake & Output 12/20/17 12/21/17 12/21/17 18:59 06:59 18:59 Intake Total 0 100 Output Total 300 775 Balance -300 -775 100 Weight 76.8 kg Intake: Intake, IV Titration 100 Amount Sodium Chloride 0.9% 1, 100 000 ml @ 100 mls/hr IV . Q10H [facility] Rx#:[id number] Oral 0 Output: Gastric Drainage 775 Urine 300 Other: Voiding Method Toilet Toilet Toilet # Voids 1 1 # Bowel Movements 1 1 He is awake alert oriented. He is in pain. Has an NG tube. HEENT exam no JVP neck is supple no facial asymmetry Lungs are clear to auscultation with good air entry bilaterally Heart sounds are unremarkable for any murmur rub gallop Abdomen soft nondistended with mild tenderness no masses felt. Bowel sounds are diminished Extremity exam was no edema Neurologically awake alert oriented. - Labs CBC & Chem 7: 12/21/17 04:49 12/21/17 04:49 Labs: Abnormal Lab Results - Last 24 Hours (Table) 12/20/17 12/21/17 12/21/17 Range/Units 20:24 04:49 04:49 RBC 3.28 L (4.30-5.90) m/uL Hgb 10.8 L (13.0-17.5) gm/dL Hct 32.7 L (39.0-53.0) % Chloride 110 H (98-107) mmol/L Carbon Dioxide 18 L (22-30) mmol/L BUN 21 H (9-20) mg/dL Glucose 73 L (74-99) mg/dL POC Glucose (mg/dL) 72 L (75-99) mg/dL Calcium 8.2 L (8.4-10.2) mg/dL 12/21/17 12/21/17 Range/Units 05:17 06:01 RBC (4.30-5.90) m/uL Hgb (13.0-17.5) gm/dL Hct (39.0-53.0) % Chloride (98-107) mmol/L Carbon Dioxide (22-30) mmol/L BUN (9-20) mg/dL Glucose (74-99) mg/dL POC Glucose (mg/dL) 68 L 122 H (75-99) mg/dL Calcium (8.4-10.2) mg/dL Microbiology - Last 24 Hours (Table) 12/20/17 00:15 Urine Culture - Preliminary Urine,Voided Assessment and Plan Assessment: Impression 1. Acute kidney injury from nausea vomiting diarrhea. Baseline creatinine is 1 on 11/01/2017 presented with creatinine of 4. ATN has improved to 2.14 and further to 1.03 with hydration. 2. 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 Baseline creatinine though is 1 dated 11/01 3. Metabolic acidosis with a bicarb of 13 and a gap of 27 secondary to acute kidney injury and diarrhea. Bicarb is down to 18 today from 20 yesterday and anion gap 11. 4. Admitted with abdominal pain nausea vomiting diarrhea with possible mesenteric ischemic bowel based on CT findings. 4. History of liver disease unclear as to the details 5. Rheumatoid arthritis on Humira. 6. History of seizure disorder. 7. History of obstructive sleep.Not on any home oxygen. 8. History of diabetes mellitus well-controlled supposedly but with proteinuria , and pyuria. 9. Pyuria and WBCs casts rule out urinary tract infection cultures are pending so far negative followed up. Recommendation. 1. Maintain IV fluids at 100 mL an hour as his creatinine is improving there is no need to increase it. 2. Patient is on sulfasalazine will watch for now. 3. Ensure strict I's and O's and positive fluid balance. 4. Watch bicarb as it has decreased. If it worsens was giving him intravenous bicarb in the drip. Thank you for this consultation we'll continue to follow with you
--- NOTE | 2017-12-21 11:41 | P.CONS ---
History of Present Illness - Reason for Consult Consult date: 12/20/17 Dilated stomach - History of Present Illness This is a 62-year-old male presents emergency Department chief complaint of nausea vomiting diarrhea abdominal pain for 4 days. Patient states he about this started having vomiting 4 days ago and has progressively worsened. He states that he cannot keep anything down he had no periods of time where he is improved. He states he's had no hematemesis or coffee-ground emesis. Patient states that he hurts head to toe states he has abdominal pain, back pain, chest pain, headache and dizziness. Patient states that he is in no contacts with some her symptoms. Denies any melena arm and she is a. He's had no dysuria no hematuria. Patient has a known diabetic states that he is on insulin. Patient states she has no localized pain. Computed tomography scan revealed dilated stomach and possible bowel obstruction or SMA syndrome. Patient has been evaluated by surgery. NG tube remains in place for low intermittent suction. Upper endoscopy is planned by surgery on Friday. Review of Systems Constitutional: No history of fever, chills or unintentional weight loss Neurologic: No headaches, double vision, other sensory or motor changes Cardiopulmonary: No chest pains, shortness of breath or palpitations Gastrointestinal: See present illness above Genitourinary: No hematuria, dysuria or frequency Skin: No rashes Hematologic: No bleeding tendency or anemia Endocrine: No polyuria, polydipsia or heat or cold intolerance Musculoskeletal: No joint swelling or pain Psychiatric: No anxiety or depression Past Medical History Past Medical History: Atrial Fibrillation, Chest Pain / Angina, Heart Failure, COPD, Diabetes Mellitus, Eye Disorder, GERD/Reflux, GI Bleed, Hypertension, Liver Disease, Pneumonia, Renal Disease, Rheumatoid Arthritis (RA), Seizure Disorder, Sleep Apnea/CPAP/BIPAP Additional Past Medical History / Comment(s): IDDM type II, neuropathy hands/ fingers and legs/feet with cramping of these as well, 2013 pulmonary edema while in [place]/respiratory failure and intubated, 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 History of Any Multi-Drug Resistant Organisms: None Reported Past Surgical History: Back Surgery, Cholecystectomy, Ear Surgery, Orthopedic Surgery Additional Past Surgical History / Comment(s): lt shoulder arthrotomy, colonoscopy/benign polyp, lt rotator cuff surgery with hardware, bilat cataract , L nephrectomy for kidney donation, BACK SX FOR FRACTURED DISCS(DONE IN [place]), TTT, L ear surgery-pt cannot recall type of surgery. Past Anesthesia/Blood Transfusion Reactions: No Reported Reaction Smoking Status: Former smoker - Past Family History Father Family Medical History: Diabetes Mellitus, Myocardial Infarction ([place]) Additional Family Medical History / Comment(s): AT AGE 87 Mother History Unknown: Yes Family Medical History: No Reported History Additional Family Medical History / Comment(s): AT AGE 76. Pt states his mother did not discuss her health. Medications and Allergies Home Medications Medication Instructions Recorded Confirmed Type Ferrous Sulfate [Feosol] 325 mg PO DAILY 01/19/14 12/19/17 History Flecainide [Tambocor] 100 mg PO BID 01/19/14 12/19/17 History Folic Acid 1 mg PO DAILY 01/19/14 12/19/17 History Gabapentin 600 mg PO TID 01/19/14 12/19/17 History Insulin Glargine [Lantus] 10 units SQ HS 01/19/14 12/19/17 History Lisinopril [Zestril] 10 mg PO DAILY 01/19/14 12/19/17 History Multivitamins, Thera [Multivitamin 1 tab PO DAILY 01/19/14 12/19/17 History (formulary)] Thiamine [Vitamin B-1] 100 mg PO DAILY 01/19/14 12/19/17 History predniSONE 5 mg PO DAILY 01/19/14 12/19/17 History Adalimumab [Humira Crohn's] 40 mg SQ Q14D 12/19/17 12/19/17 History Amitriptyline HCl [Elavil] 25 mg PO HS 12/19/17 12/19/17 History Ascorbic Acid [Vitamin C] 500 mg PO DAILY 12/19/17 12/19/17 History Furosemide [Lasix] 40 mg PO DAILY 12/19/17 12/19/17 History Glycerin/Propylene Glycol 15 ml BOTH EYES QID 12/19/17 12/19/17 History [Artificial Tears Drops] HYDROcodone/APAP 10-325MG [[place] 2 tab PO QID PRN 12/19/17 12/19/17 History 10-325] Latanoprost/Pf [Latanoprost 0.005% 1 drop BOTH EYES HS 12/19/17 12/19/17 History Eye Drop] Lidocaine [Lidoderm 5% Patch] 1 patch TRANSDERM DAILY 12/19/17 12/19/17 History Melatonin 5 mg PO HS 12/19/17 12/19/17 History Metoprolol Tartrate [Lopressor] 50 mg PO BID 12/19/17 12/19/17 History Omeprazole 40 mg PO DAILY 12/19/17 12/19/17 History Sertraline HCl [Zoloft] 100 mg PO DAILY 12/19/17 12/19/17 History Simvastatin [Zocor] 10 mg PO HS 12/19/17 12/19/17 History sulfaSALAzine [Azulfidine] 1,000 mg PO BID 12/19/17 12/19/17 History Allergies Allergy/AdvReac Type Severity Reaction Status Date / Time No Known Allergies Allergy Verified 12/19/17 08:30 Physical Exam Vitals: Vital Signs Temp Pulse Resp BP Pulse Ox 12/20/17 20:55 83 15 119/58 97 12/20/17 16:00 99.3 F 74 18 113/67 95 12/20/17 12:00 98.6 F 72 18 109/60 93 L 12/20/17 08:00 98.7 F 73 18 105/59 97 12/20/17 03:54 82 14 121/68 93 L 12/19/17 23:50 98.0 F 77 115/66 93 L Intake and Output 12/20/17 12/20/17 12/20/17 06:59 14:59 22:59 Intake Total 800 0 Output Total 500 300 Balance 300 -300 Intake: Intake, IV Titration 800 Amount Sodium Chloride 0.9% 1, 800 000 ml @ 100 mls/hr IV . Q10H [facility] Rx#:[id number] Oral 0 Output: Gastric Drainage 500 Urine 300 Other: Voiding Method Toilet Toilet Toilet # Voids 1 # Bowel Movements 1 Weight 76 kg 76 kg General: Appeared stated age, very pleasant in no acute distress Head and neck: Normocephalic and atraumatic, conjunctivae pink and sclerae not icteric, mucous membranes moist and pink. No masses in the neck or tracheal shifts Lungs: Clear to auscultation with no dullness to percussion Heart: Regular, no abnormal sounds, murmurs, gallops or friction biopsies Abdomen: Soft, no masses or organomegalies. No tenderness, guarding or rebound, bowel sounds present Extremities: No clubbing, cyanosis or edema Neurologic: Alert and oriented 3, cranial nerves grossly intact, no gross sensory or motor abnormalities Results CBC & Chem 7: 12/21/17 04:49 12/21/17 04:49 Labs: Abnormal Lab Results - Last 24 Hours (Table) 12/20/17 12/20/17 12/20/17 Range/Units 05:56 06:44 06:44 WBC 19.4 H (3.8-10.6) k/uL RBC 3.89 L (4.30-5.90) m/uL Hgb 12.4 L D (13.0-17.5) gm/dL MCV 101.1 H (80.0-100.0) fL Carbon Dioxide 20 L (22-30) mmol/L BUN 33 H (9-20) mg/dL Creatinine 2.14 H (0.66-1.25) mg/dL Glucose 100 H (74-99) mg/dL POC Glucose (mg/dL) 117 H (75-99) mg/dL Calcium 8.3 L (8.4-10.2) mg/dL 12/20/17 Range/Units 20:24 WBC (3.8-10.6) k/uL RBC (4.30-5.90) m/uL Hgb (13.0-17.5) gm/dL MCV (80.0-100.0) fL Carbon Dioxide (22-30) mmol/L BUN (9-20) mg/dL Creatinine (0.66-1.25) mg/dL Glucose (74-99) mg/dL POC Glucose (mg/dL) 72 L (75-99) mg/dL Calcium (8.4-10.2) mg/dL Microbiology - Last 24 Hours (Table) 12/20/17 00:15 Urine Culture - Preliminary Urine,Voided Assessment and Plan Assessment: The gastrointestinal symptoms and the findings on CT could be consistent with intestinal obstruction. The possibility of infectious etiology including gastroenteritis and secondary ileus will be kept in mind. Plan: I reviewed her current management. Will follow closely with you and additional recommendations would be made based on his course.
--- NOTE | 2017-12-21 11:41 | P.PN ---
Progress Note - Text Progress Note Date: 12/21/17 The patient resting comfortably in bed. He still has some mild epigastric pain. On exam is lesser stable present soft. We will plan for EGD in a.m.
[2017-12-21 11:46] LABS: Glucose,Whole Blood 77 mg/dL (75-99)
--- NOTE | 2017-12-21 14:49 | P.PN ---
Subjective 61-year-old admitted secondary to acute renal failure from nausea vomiting and the patient is found to have possible small bowel obstruction or SMA syndrome. . Patient doesn't have any significant drainage creatinine improved. 12/21/2017 Patient's creatinine improved and now normalized around 1. Patient still has NG tube which is still draining still complaining of some abdominal pain but does have good bowel sounds Constitutional: Denied any fatigue denied any fever. Cardio vascular: denied any chest pain, palpitations Pulmonary: Denied any shortness of breath cough Neurologic denied any new focal deficits Objective - Vital Signs Vital signs: Vital Signs Temp 97.6 F 12/21/17 12:00 Pulse 72 12/21/17 12:00 Resp 18 12/21/17 12:00 BP 129/76 12/21/17 12:00 Pulse Ox 96 12/21/17 12:00 Intake & Output 12/20/17 12/21/17 12/21/17 18:59 06:59 18:59 Intake Total 0 100 Output Total 300 775 Balance -300 -775 100 Weight 76.8 kg Intake: Intake, IV Titration 100 Amount Sodium Chloride 0.9% 1, 100 000 ml @ 100 mls/hr IV . Q10H [facility] Rx#:[id number] Oral 0 Output: Gastric Drainage 775 Urine 300 Other: Voiding Method Toilet Toilet Toilet # Voids 1 1 # Bowel Movements 1 1 - Exam PHYSICAL EXAMINATION: GENERAL: The patient is alert and oriented x3, not in any acute distress. Well developed, well nourished. HEENT: Pupils are round and equally reacting to light. EOMI. No scleral icterus. No conjunctival pallor. Normocephalic, atraumatic. No pharyngeal erythema. No thyromegaly. CARDIOVASCULAR: S1 and S2 present. No murmurs, rubs, or gallops. PULMONARY: Chest is clear to auscultation, no wheezing or crackles. ABDOMEN: Nondistended does have an NG tube in place no significant drainage today patient had coffee-ground emesis as today MUSCULOSKELETAL: No joint swelling or deformity. EXTREMITIES: No cyanosis, clubbing, or pedal edema. NEUROLOGICAL: Gross neurological examination did not reveal any focal deficits. SKIN: No rashes. - Labs CBC & Chem 7: 12/21/17 04:49 12/21/17 04:49 Labs: Abnormal Lab Results - Last 24 Hours (Table) 12/20/17 12/21/17 12/21/17 Range/Units 20:24 04:49 04:49 RBC 3.28 L (4.30-5.90) m/uL Hgb 10.8 L (13.0-17.5) gm/dL Hct 32.7 L (39.0-53.0) % Chloride 110 H (98-107) mmol/L Carbon Dioxide 18 L (22-30) mmol/L BUN 21 H (9-20) mg/dL Glucose 73 L (74-99) mg/dL POC Glucose (mg/dL) 72 L (75-99) mg/dL Calcium 8.2 L (8.4-10.2) mg/dL 12/21/17 12/21/17 Range/Units 05:17 06:01 RBC (4.30-5.90) m/uL Hgb (13.0-17.5) gm/dL Hct (39.0-53.0) % Chloride (98-107) mmol/L Carbon Dioxide (22-30) mmol/L BUN (9-20) mg/dL Glucose (74-99) mg/dL POC Glucose (mg/dL) 68 L 122 H (75-99) mg/dL Calcium (8.4-10.2) mg/dL Microbiology - Last 24 Hours (Table) 12/20/17 00:15 Urine Culture - Final Urine,Voided Assessment and Plan Plan: -Nausea vomiting: Low Possibly of SMA syndrome. Possible gastroenteritis NG tube in place, no abdominal distention patient has good bowel sounds will undergo upper GI endoscopy -Abdominal pain possibly peptic ulcer disease. Gastroenterology and surgery evaluated the patient. -Acute renal failure secondary to nausea vomiting diarrhea prerenal azotemia improved her renal failure present creatinine is 1. -Diarrhea: As PATIENT may have had gastroenteritis rather than SMA syndrome -Type 2 diabetes mellitus: Patient will be started on sliding scale insulin as patient is nothing by mouth Lantus is being discontinued and patient is on low- dose of Lantus -Rheumatoid arthritis: Patient is on immunosuppressive therapy which will be continued along with prednisone -Hyperlipidemia -Atrial fibrillation: Presently rate controlled when I may not be able to start him on anticoagulation considering that patient will have an NG tube at this time -Seizure disorder -Sleep apnea on continuous CPAP machine
[2017-12-21] MEDS ORDERED: DEXTROSE 50%-WATER 50 ML SYRINGE IVP STA (16:50)
[2017-12-21 17:24] LABS: Glucose,Whole Blood 66 mg/dL (75-99)
[2017-12-21 17:54] LABS: Glucose,Whole Blood 166 mg/dL (75-99)
[2017-12-21] MEDS: KETOROLAC 30 MG/ML 1 ML VIAL IVP PRN (20:15)
[2017-12-21 20:48] LABS: Glucose,Whole Blood 62 mg/dL (75-99)
[2017-12-21] MEDS: LATANOPROST 0.005% OPHTH DROPS 2.5 ML BTL BOTH EYES SCH (21:45)
[2017-12-21] MEDS: ATORVASTATIN 10 MG TAB PO SCH (21:46)
[2017-12-21] MEDS: MELATONIN 5 MG TABLET PO SCH (21:46)
[2017-12-21] MEDS: AMITRIPTYLINE HCL 25 MG TAB PO SCH (21:46)
[2017-12-21 22:38] LABS: Glucose,Whole Blood 76 mg/dL (75-99)
[2017-12-22] MEDS: KETOROLAC 30 MG/ML 1 ML VIAL IVP PRN ×2 (02:14→08:55)
[2017-12-22 06:03] LABS: Glucose,Whole Blood 93 mg/dL (75-99)
[2017-12-22 06:47] LABS: Basophils % (A) 0 %; Eosinophils # (A) 0.1 k/uL (0-0.7); Eosinophils % (A) 2 %; HCT 31.8 % (39.0-53.0); HGB 10.5 gm/dL (13.0-17.5); Lymphocytes # (A) 1.2 k/uL (1.0-4.8); Lymphocytes % (A) 18 %; MCH 32.4 pg (25.0-35.0); MCHC 32.9 g/dL (31.0-37.0); MCV 98.5 fL (80.0-100.0); Mean Platelet Volume 7.1; Monocytes # (A) 0.5 k/uL (0-1.0); Monocytes % (A) 7 %; Neutrophils # (A) 4.7 k/uL (1.3-7.7); Neutrophils % (A) 70 %; Platelet Count 189 k/uL (150-450); RBC 3.23 m/uL (4.30-5.90); WBC 6.7 k/uL (3.8-10.6)
[2017-12-22 07:00] LABS: Anion Gap 8 mmol/L; Blood Urea Nitrogen 16 mg/dL (9-20); Calcium 8.7 mg/dL (8.4-10.2); Carbon Dioxide 20 mmol/L (22-30); Chloride 114 mmol/L (98-107); Glucose 90 mg/dL (74-99); Potassium 4.2 mmol/L (3.5-5.1); Sodium 142 mmol/L (137-145)
[2017-12-22] MEDS: SODIUM CHLORIDE 0.9% 1,000 ML IV SCH ×3 (08:30→16:46)
[2017-12-22] MEDS: INSULIN ASPART 100 UNIT/ML 1 ML 10 ML VIAL SQ SCH ×4 (08:30→17:37)
[2017-12-22] MEDS: GABAPENTIN 100 MG CAP PO SCH ×3 (08:31→21:51)
[2017-12-22] MEDS: MULTIVITAMINS, THERA 1 EACH TAB PO SCH (08:31)
[2017-12-22] MEDS: FOLIC ACID 1 MG TAB PO SCH (08:31)
[2017-12-22] MEDS: predniSONE 5 MG TAB PO SCH (08:32)
[2017-12-22] MEDS: THIAMINE 100 MG TAB PO SCH (08:32)
[2017-12-22] MEDS: FAMOTIDINE 20 MG/2 ML VIAL IV SCH ×2 (08:55→21:51)
[2017-12-22] MEDS: FLECAINIDE 50 MG TAB PO SCH ×2 (08:55→21:51)
[2017-12-22] MEDS: METOPROLOL TARTRATE 50 MG TAB PO SCH ×2 (08:55→21:51)
[2017-12-22] MEDS: sulfaSALAzine 500 MG TAB PO SCH (11:17)
[2017-12-22] MEDS: LIDOCAINE 5% PATCH TOPICAL SCH (12:06)
[2017-12-22] MEDS ORDERED: PROPOFOL 10 MG/ML 20 ML VIAL IV ONE (14:12)
[2017-12-22] MEDS ORDERED: LIDOCAINE 1% INJ 10MG/ML (20 ML MDV) ONE (14:12)
[2017-12-22] MEDS ORDERED: fentaNYL (PF) 50 MCG/ML 2 ML AMP ONE (14:12)
[2017-12-22] MEDS ORDERED: MIDAZOLAM 2 MG/2 ML VIAL ONE (14:12)
[2017-12-22] MEDS ORDERED: IV FLUID CONTINUATION 800 ML IV ONE (14:30)
--- NOTE | 2017-12-22 14:32 | P.OP ---
Date of Procedure: 12/22/17 Preoperative Diagnosis: Acute gastric distention Postoperative Diagnosis: Antral gastritis Small sliding hiatal hernia Procedure(s) Performed: EGD Anesthesia: MAC Surgeon: Kaleb Sams Pathology: other (Antrum) Condition: stable Disposition: PACU Description of Procedure: Patient's placed on the endoscopy table in the lateral position. He received IV sedation. The gastroscope placed oropharynx and passed in the esophagus and stomach. Scope was then placed through the pylorus. The first and second portion of the duodenumAppeared normal. There is no evidence of any obstruction of duodenum. Scope was then brought back the antrum this was mildly inflamed. A biopsies performed. The scope was then retroflexed and remainder of the stomach appeared normal. There was a small sliding hiatal hernia. The GE junction was at 40 cm. The distal esophagus appeared normal. The proximal esophagus appeared normal. Scope was withdrawn for patient.
--- NOTE | 2017-12-22 16:39 | PN ---
PROGRESS NOTE Patient is seen for followup for acute kidney injury. He was admitted with a creatinine of 4.8. It is now down to 0.87. Patient is maintained on IV fluids. He currently has an NG tube in place. He denies any significant abdominal pain, chest pain, shortness of breath. On examination, blood pressure this morning 135/60, heart rate 77 per minute. Patient is afebrile. EXAMINATION OF THE HEART: S1, S2. EXAMINATION OF LUNGS: Bilateral breath sounds are heard. ABDOMEN: Soft, non-tender. Examination of lower extremities shows no evidence of edema. Patient has an NG tube in place. Lab show sodium 142, potassium 4.2, chloride 114. CO2 is 20, BUN 16, serum creatinine 0.87, hemoglobin 10.5 g/dL. ASSESSMENT: 1. Acute kidney injury, prerenal, currently significantly improved with creatinine down to 0.8 mg/dL. 2. Chronic kidney disease secondary to diabetic nephropathy with preserved GFR with baseline creatinine close to 1 mg/dL. 3. Nausea and vomiting secondary to bowel obstruction or possibly SMA syndrome, currently with NG tube in place, being followed by Surgery. 4. Atrial fibrillation with controlled ventricular response. 5. History of seizure disorder. 6. Rheumatoid arthritis, maintained on Toradol, sulfasalazine and prednisone. We can continue with the Toradol, given the significant improvement in renal function. However, I would like to avoid this on the intermediate accountant. MMODL / IJN: [id number] /
[2017-12-22] MEDS: HYDROcodone/APAP 10-325MG 1 EACH TAB PO PRN (16:52)
[2017-12-22 17:00] LABS: Glucose,Whole Blood 73 mg/dL (75-99)
--- NOTE | 2017-12-22 18:11 | P.PN ---
Subjective Progress Note Date: 12/22/17 Progress note being dictated for Dr. Avila. Interval history:61-year-old admitted secondary to acute renal failure from nausea vomiting and the patient is found to have possible small bowel obstruction or SMA syndrome. . Patient doesn't have any significant drainage creatinine improved. 12/21/2017 Patient's creatinine improved and now normalized around 1. Patient still has NG tube which is still draining still complaining of some abdominal pain but does have good bowel sounds Constitutional: Denied any fatigue denied any fever. Cardio vascular: denied any chest pain, palpitations Pulmonary: Denied any shortness of breath cough Neurologic denied any new focal deficits 12/22/2017 evaluated by GI and surgery, scheduled for EGD. NPO with NG tube. Positive bowel movements. Abdominal pain controlled. Renal function improving. Objective - Vital Signs Vital signs: Vital Signs Temp 97.0 F L 12/22/17 15:00 Pulse 62 12/22/17 16:00 Resp 18 12/22/17 16:00 BP 119/58 12/22/17 15:00 Pulse Ox 97 12/22/17 15:00 Intake & Output 12/21/17 12/22/17 12/22/17 18:59 06:59 18:59 Intake Total 1100 400 Output Total 1650 Balance 1100 -1650 400 Weight 76.1 kg Intake: IV 400 Intake, IV Titration 1100 Amount Sodium Chloride 0.9% 1, 1100 000 ml @ 100 mls/hr IV . Q10H [facility] Rx#:[id number] Output: Urine 1650 Other: Voiding Method Toilet Toilet Toilet # Voids 2 2 1 # Bowel Movements 1 1 - Exam GENERAL: The patient is alert and oriented x3, not in any acute distress. HEENT: Pupils are round and equally reacting to light. EOMI. No scleral icterus. No conjunctival pallor. Normocephalic, atraumatic. No pharyngeal erythema. No thyromegaly. CARDIOVASCULAR: S1 and S2 present. No murmurs, rubs, or gallops. PULMONARY: Chest is clear to auscultation, no wheezing or crackles. ABDOMEN: Nondistended does have an NG tube in place no significant drainage today patient had coffee-ground emesis as today MUSCULOSKELETAL: No joint swelling or deformity. EXTREMITIES: No cyanosis, clubbing, or pedal edema. NEUROLOGICAL: Gross neurological examination did not reveal any focal deficits. SKIN: No rashes. - Labs CBC & Chem 7: 12/22/17 06:33 12/22/17 06:33 Labs: Abnormal Lab Results - Last 24 Hours (Table) 12/21/17 12/22/17 12/22/17 Range/Units 20:47 06:33 06:33 RBC 3.23 L (4.30-5.90) m/uL Hgb 10.5 L (13.0-17.5) gm/dL Hct 31.8 L (39.0-53.0) % Chloride 114 H (98-107) mmol/L Carbon Dioxide 20 L (22-30) mmol/L POC Glucose (mg/dL) 62 L (75-99) mg/dL 12/22/17 Range/Units 16:58 RBC (4.30-5.90) m/uL Hgb (13.0-17.5) gm/dL Hct (39.0-53.0) % Chloride (98-107) mmol/L Carbon Dioxide (22-30) mmol/L POC Glucose (mg/dL) 73 L (75-99) mg/dL Assessment and Plan Assessment: -Nausea vomiting: Low Possibly of SMA syndrome. Possible gastroenteritis -Abdominal pain possibly peptic ulcer disease. -Acute renal failure secondary to nausea vomiting diarrhea prerenal azotemia improved -Diarrhea: As PATIENT may have had gastroenteritis rather than SMA syndrome -Type 2 diabetes mellitus -Rheumatoid arthritis -Hyperlipidemia -Atrial fibrillation: rate controlled -Seizure disorder -Sleep apnea on continuous CPAP machine Plan: Continue on current medication regime ,monitoring and symptomatic treatment. Awaiting EGD today. Discharge planning in progress for tomorrow pending endoscopy findings. Patient states he goes between 2 PCPs, recommended he chooses and follows with only 1. The impression and plan of care has been dictated as directed. : I performed a history and examination of this patient, discussed the same with the dictator. I agree with the dictator's note ,documented as a scribe. Any additional findings or plans will be noted.
[2017-12-22 20:54] LABS: Glucose,Whole Blood 131 mg/dL (75-99)
[2017-12-22 21:16] LABS: Hemoglobin A1C 4.9 % (4.0-6.0)
[2017-12-22] MEDS: MELATONIN 5 MG TABLET PO SCH (21:51)
[2017-12-22] MEDS: ATORVASTATIN 10 MG TAB PO SCH (21:51)
[2017-12-22] MEDS: LATANOPROST 0.005% OPHTH DROPS 2.5 ML BTL BOTH EYES SCH (21:52)
[2017-12-22] MEDS: AMITRIPTYLINE HCL 25 MG TAB PO SCH (21:52)
[2017-12-23] MEDS: INSULIN ASPART 100 UNIT/ML 1 ML 10 ML VIAL SQ SCH ×4 (03:49→17:05)
[2017-12-23 06:15] LABS: Glucose,Whole Blood 85 mg/dL (75-99)
[2017-12-23] MEDS: sulfaSALAzine 500 MG TAB PO SCH ×2 (06:54→09:27)
[2017-12-23 08:09] LABS: Basophils % (A) 1 %; Eosinophils # (A) 0.3 k/uL (0-0.7); Eosinophils % (A) 5 %; HCT 30.1 % (39.0-53.0); Lymphocytes # (A) 1.4 k/uL (1.0-4.8); Lymphocytes % (A) 23 %; MCH 33.5 pg (25.0-35.0); MCHC 33.3 g/dL (31.0-37.0); MCV 100.7 fL (80.0-100.0); Mean Platelet Volume 7.4; Monocytes # (A) 0.4 k/uL (0-1.0); Monocytes % (A) 7 %; Neutrophils # (A) 3.9 k/uL (1.3-7.7); Neutrophils % (A) 63 %; Platelet Count 224 k/uL (150-450); RBC 2.99 m/uL (4.30-5.90); RDW 12.9 % (11.5-15.5); WBC 6.2 k/uL (3.8-10.6)
[2017-12-23 08:31] LABS: Anion Gap 6 mmol/L; Blood Urea Nitrogen 9 mg/dL (9-20); Calcium 8.4 mg/dL (8.4-10.2); Carbon Dioxide 21 mmol/L (22-30); Chloride 115 mmol/L (98-107); Glucose 89 mg/dL (74-99); Potassium 3.7 mmol/L (3.5-5.1); Sodium 142 mmol/L (137-145)
[2017-12-23] MEDS ORDERED: predniSONE 5 MG TAB PO SCH (09:00)
[2017-12-23] MEDS ORDERED: LIDOCAINE 5% PATCH TOPICAL SCH (09:00)
[2017-12-23] MEDS: SODIUM CHLORIDE 0.9% 1,000 ML IV SCH ×2 (09:15→12:11)
[2017-12-23] MEDS: FAMOTIDINE 20 MG/2 ML VIAL IV SCH (09:27)
[2017-12-23] MEDS: MULTIVITAMINS, THERA 1 EACH TAB PO SCH (09:27)
[2017-12-23] MEDS: FLECAINIDE 50 MG TAB PO SCH (09:27)
[2017-12-23] MEDS: METOPROLOL TARTRATE 50 MG TAB PO SCH (09:28)
[2017-12-23] MEDS: GABAPENTIN 100 MG CAP PO SCH ×2 (09:28→15:34)
[2017-12-23] MEDS: FOLIC ACID 1 MG TAB PO SCH (09:28)
[2017-12-23] MEDS: HYDROcodone/APAP 10-325MG 1 EACH TAB PO PRN ×2 (09:28→15:34)
[2017-12-23] MEDS: BENZOCAINE SPRAY 1 CAN MUCOUS MEM PRN (09:37)
[2017-12-23] MEDS: THIAMINE 100 MG TAB PO SCH (09:44)
[2017-12-23 10:02] VITALS: BMI 27.9
--- NOTE | 2017-12-23 10:09 | P.PN ---
Subjective Patient is seen in follow-up for acute kidney injury. GFR is back to baseline with creatinine is 0.8 today. Vomiting and diarrhea have both improved. Oral intake is gradually improving. IV fluids were discontinued last night. Admits to good urine output. Vital signs are stable. General: The patient appeared well nourished and normally developed. HEENT: Head exam is unremarkable. Neck is without jugular venous distension. LUNGS: Lungs are clear to auscultation and percussion. Breath sounds decreased. HEART: Rate and Rhythm are regular. First and second heart sounds normal. No murmurs, rubs or gallops. ABDOMEN: Abdominal exam reveals normal bowel sounds. Non-tender and non- distended. No evidence of peritonitis. EXTREMITITES: No clubbing, cyanosis, or edema. Objective - Vital Signs Vital signs: Vital Signs Temp 96.2 F L 12/23/17 04:00 Pulse 72 12/23/17 04:00 Resp 18 12/23/17 04:00 BP 135/72 12/23/17 04:00 Pulse Ox 98 12/23/17 04:00 Intake & Output 12/22/17 12/23/17 12/23/17 18:59 06:59 18:59 Intake Total 490 222 Output Total 1100 Balance 490 -1100 222 Weight 76.2 kg 76.2 kg Intake: IV 400 Oral 90 222 Output: Urine 1100 Other: Voiding Method Toilet Toilet # Voids 1 1 1 - Labs CBC & Chem 7: 12/23/17 06:37 12/23/17 06:37 Labs: Abnormal Lab Results - Last 24 Hours (Table) 12/22/17 12/22/17 12/23/17 Range/Units 16:58 20:48 06:37 RBC 2.99 L (4.30-5.90) m/uL Hgb 10.0 L (13.0-17.5) gm/dL Hct 30.1 L (39.0-53.0) % MCV 100.7 H (80.0-100.0) fL Chloride (98-107) mmol/L Carbon Dioxide (22-30) mmol/L POC Glucose (mg/dL) 73 L 131 H (75-99) mg/dL 12/23/17 Range/Units 06:37 RBC (4.30-5.90) m/uL Hgb (13.0-17.5) gm/dL Hct (39.0-53.0) % MCV (80.0-100.0) fL Chloride 115 H (98-107) mmol/L Carbon Dioxide 21 L (22-30) mmol/L POC Glucose (mg/dL) (75-99) mg/dL Assessment and Plan Plan: Assessment: 1. Nonoliguric acute kidney injury mostly prerenal secondary to intravascular volume depletion from vomiting and diarrhea. Resolved. 2. Chronic kidney disease stage I secondary to diabetic kidney disease. Baseline creatinine near 1. 3. Nausea and vomiting. Improved. Status post EGD which revealed small sliding hernia and antral gastritis. 4. Rheumatoid arthritis. 5. Hyperchloremic metabolic acidosis secondary to IV fluids. Plan: Encouraged oral intake. Avoid nephrotoxins. Minimize the use of Toradol. Monitor bicarb. Repeat electrolytes in the morning.
--- NOTE | 2017-12-23 10:18 | P.PN ---
Subjective Progress Note Date: 12/23/17 62-year-old seen at the bedside this morning denies any nausea vomiting tolerating diet currently is denying any epigastric discomfort. EGD done on shows small sliding hiatal hernia and antral gastritis. From a surgical perspective patient is felt to be clinically stable could be discharged defer to the attending to the timing White count 6.2 hemoglobin 10 creatinine 0.8 Objective - Vital Signs Vital signs: Vital Signs Temp 97.8 F 12/23/17 08:00 Pulse 80 12/23/17 08:00 Resp 18 12/23/17 08:00 BP 128/70 12/23/17 08:00 Pulse Ox 97 12/23/17 08:00 Intake & Output 12/22/17 12/23/17 12/23/17 18:59 06:59 18:59 Intake Total 490 222 Output Total 1100 Balance 490 -1100 222 Weight 76.2 kg 76.2 kg Intake: IV 400 Oral 90 222 Output: Urine 1100 Other: Voiding Method Toilet Toilet # Voids 1 1 1 - Exam GENERAL APPEARANCE: patient is alert, oriented, in no acute distress. VITAL SIGNS: Reviewed HEENT: Head is normocephalic and atraumatic. Pupils are equal and reactive. The nares are patent. Oropharynx is clear without lesions. NECK: Supple without lymphadenopathy. Traches midline. HEART: S1, S2. Regular rate and rhythm. LUNGS: No crackles or wheezes are heard. ABDOMEN: Soft, nontender, nondistended with good bowel sounds. No peritoneal signs. No palpable organomegaly or masses. EXTREMITIES: Normal skin color and turgor. No cyanosis, rash, ulceration, clubbing or edema. Radial pedal pulses are 2/4 bilaterally. NEUROLOGICAL: No focal deficits. Strength and sensation are grossly intact. - Labs CBC & Chem 7: 12/23/17 06:37 12/23/17 06:37 Labs: Abnormal Lab Results - Last 24 Hours (Table) 12/22/17 12/22/17 12/23/17 Range/Units 16:58 20:48 06:37 RBC 2.99 L (4.30-5.90) m/uL Hgb 10.0 L (13.0-17.5) gm/dL Hct 30.1 L (39.0-53.0) % MCV 100.7 H (80.0-100.0) fL Chloride (98-107) mmol/L Carbon Dioxide (22-30) mmol/L POC Glucose (mg/dL) 73 L 131 H (75-99) mg/dL 12/23/17 Range/Units 06:37 RBC (4.30-5.90) m/uL Hgb (13.0-17.5) gm/dL Hct (39.0-53.0) % MCV (80.0-100.0) fL Chloride 115 H (98-107) mmol/L Carbon Dioxide 21 L (22-30) mmol/L POC Glucose (mg/dL) (75-99) mg/dL Assessment and Plan Assessment: Impression History of a 45 day duration nausea vomiting epigastric fold dull pain. CAT scan done in the emergency room showed dilated stomach dilated proximal duodenum low probability of SMA syndrome suspect gastroenteritis rather than SMA syndrome December 22 EGD showed small sliding hiatal hernia, antral gastritis Plan surgical perspective patient to be discharged will follow-up in the outpatient setting Defer to the timing of the discharge to the attending Continue with the recommendations of the attending The above impression and plan of care have been discussed and directed by signing physician. Gabby Royal nurse practitioner acting as scribe for signing physician.
[2017-12-23 11:41] LABS: Glucose,Whole Blood 105 mg/dL (75-99)
--- NOTE | 2017-12-23 15:36 | P.DS ---
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 Suspect gastroenteritis -Abdominal pain possibly peptic ulcer disease. Status post EGD reporting small sliding hiatal hernia, antral gastritis. -Acute renal failure secondary to nausea vomiting diarrhea prerenal azotemia improved -Diarrhea: As PATIENT may have had gastroenteritis rather than SMA syndrome -Type 2 diabetes mellitus -Rheumatoid arthritis -Hyperlipidemia -Atrial fibrillation: rate controlled -Seizure disorder -Sleep apnea on continuous CPAP machine Hospital course:Interval history:61-year-old admitted secondary to acute renal failure from nausea vomiting and the patient is found to have possible small bowel obstruction or SMA syndrome. . Patient doesn't have any significant drainage creatinine improved. 12/21/2017 Patient's creatinine improved and now normalized around 1. Patient still has NG tube which is still draining still complaining of some abdominal pain but does have good bowel sounds Constitutional: Denied any fatigue denied any fever. Cardio vascular: denied any chest pain, palpitations Pulmonary: Denied any shortness of breath cough Neurologic denied any new focal deficits 12/22/2017 evaluated by GI and surgery, scheduled for EGD. NPO with NG tube. Positive bowel movements. Abdominal pain controlled. Renal function improving. EGD reported sliding hiatal hernia and antral gastritis - Exam GENERAL: The patient is alert and oriented x3, not in any acute distress. CARDIOVASCULAR: S1 and S2 present. No murmurs, rubs, or gallops. PULMONARY: Chest is clear to auscultation, no wheezing or crackles. ABDOMEN: Soft, nondistended, nontender, positive bowel sounds. No palpable organomegaly. No guarding NEUROLOGICAL: Gross neurological examination did not reveal any focal deficits. The impression and plan of care has been dictated as directed. : I performed a history and examination of this patient, discussed the same with the dictator. I agree with the dictator's note ,documented as a scribe. Any additional findings or plans will be noted. Time taken: 35 minutes Patient Condition at Discharge: Stable Plan - Discharge Summary Discharge Rx Participant: No New Discharge Prescriptions: No Action predniSONE 5 mg PO DAILY Thiamine [Vitamin B-1] 100 mg PO DAILY Multivitamins, Thera [Multivitamin (formulary)] 1 tab PO DAILY Lisinopril [Zestril] 10 mg PO DAILY Insulin Glargine [Lantus] 10 units SQ HS Gabapentin 600 mg PO TID Folic Acid 1 mg PO DAILY Flecainide [Tambocor] 100 mg PO BID Ferrous Sulfate [Feosol] 325 mg PO DAILY sulfaSALAzine [Azulfidine] 1,000 mg PO BID Simvastatin [Zocor] 10 mg PO HS Sertraline HCl [Zoloft] 100 mg PO DAILY Melatonin 5 mg PO HS Lidocaine [Lidoderm 5% Patch] 1 patch TRANSDERM DAILY Latanoprost/Pf [Latanoprost 0.005% Eye Drop] 1 drop BOTH EYES HS Glycerin/Propylene Glycol [Artificial Tears Drops] 15 ml BOTH EYES QID Furosemide [Lasix] 40 mg PO DAILY Ascorbic Acid [Vitamin C] 500 mg PO DAILY Amitriptyline HCl [Elavil] 25 mg PO HS Omeprazole 40 mg PO DAILY Adalimumab [Humira Crohn's] 40 mg SQ Q14D Metoprolol Tartrate [Lopressor] 50 mg PO BID HYDROcodone/APAP 10-325MG [[place] 10-325] 2 tab PO QID PRN PRN Reason: Pain Discharge Medication List Ferrous Sulfate [Feosol] 325 mg PO DAILY 01/19/14 [History] Flecainide [Tambocor] 100 mg PO BID 01/19/14 [History] Folic Acid 1 mg PO DAILY 01/19/14 [History] Gabapentin 600 mg PO TID 01/19/14 [History] Insulin Glargine [Lantus] 10 units SQ HS 01/19/14 [History] Lisinopril [Zestril] 10 mg PO DAILY 01/19/14 [History] Multivitamins, Thera [Multivitamin (formulary)] 1 tab PO DAILY 01/19/14 [History ] Thiamine [Vitamin B-1] 100 mg PO DAILY 01/19/14 [History] predniSONE 5 mg PO DAILY 01/19/14 [History] Adalimumab [Humira Crohn's] 40 mg SQ Q14D 12/19/17 [History] Amitriptyline HCl [Elavil] 25 mg PO HS 12/19/17 [History] Ascorbic Acid [Vitamin C] 500 mg PO DAILY 12/19/17 [History] Furosemide [Lasix] 40 mg PO DAILY 12/19/17 [History] Glycerin/Propylene Glycol [Artificial Tears Drops] 15 ml BOTH EYES QID 12/19/17 [History] HYDROcodone/APAP 10-325MG [[place] 10-325] 2 tab PO QID PRN 12/19/17 [History] Latanoprost/Pf [Latanoprost 0.005% Eye Drop] 1 drop BOTH EYES HS 12/19/17 [ History] Lidocaine [Lidoderm 5% Patch] 1 patch TRANSDERM DAILY 12/19/17 [History] Melatonin 5 mg PO HS 12/19/17 [History] Metoprolol Tartrate [Lopressor] 50 mg PO BID 12/19/17 [History] Omeprazole 40 mg PO DAILY 12/19/17 [History] Sertraline HCl [Zoloft] 100 mg PO DAILY 12/19/17 [History] Simvastatin [Zocor] 10 mg PO HS 12/19/17 [History] sulfaSALAzine [Azulfidine] 1,000 mg PO BID 12/19/17 [History] Follow up Appointment(s)/Referral(s): [facility],Clinic [Primary Care Provider] - 1-2 days Kaleb Sams MD [STAFF PHYSICIAN] - 1 Week Activity/Diet/Wound Care/Special Instructions: Glucometer - [facility] - [phone] - to be delivered to room prior to discharge
[2017-12-23 16:49] VITALS: BP 127/71; PULSE 64; TEMP 97.1
[2017-12-23 16:51] LABS: Glucose,Whole Blood 106 mg/dL (75-99)
[2017-12-23] MEDS ORDERED: FAMOTIDINE 20 MG TAB PO SCH (21:00)
--- NOTE | 2017-12-25 08:38 | CDI ---
Last Revision, February 2017 Documentation Clarification Form Date: 12/25/17 From: Kimberly Rodolfo Vicki Priest, Statuary Painter Hours-8:30 am & 5 pm Larissa Admit Date: 12/19/2017 11:05:00 AM Patient Name: Obdulio Hatfield Visit Number: [id number] Discharge Date: 12/23/17 ATTENTION: The Clinical Documentation Specialists (CDI) and [facility] Coding Staff appreciate your assistance in clarifying documentation. Please respond to the clarification below the line at the bottom and electronically sign. The CDI & [facility] Coding staff will review the response and follow-up if needed. Please note: Queries are made part of the Legal Health Record. If you have any questions, please contact the author of this message via ITS. Donte Espino MD Atrial fibrillation is documented in the ED note, H&P, consults, PNs & DS. History/Risk Factors: gastroenteritis, DM, Crohn's, HTN EKG/telemetry: #1- sinus tachycardia, #2-normal sinus rhythm Treatment: Tambocor, In your professional opinion, can you please clarify the type of atrial fibrillation, if known? Chronic/Permanent Paroxysmal Persistent Other, please specify Unable to determine Please continue to document in your progress notes and discharge summary in order to capture severity of illness and risk of mortality. Include clinical findings that support your diagnosis. chronic afib MTDD
== END 2017-12-23 18:23 | disposition home or self-care (01) | DRG 391 ==
LOC: EC 08:24 → 6SEL 11:05 → 3SCARD 12-21 09:37 → 6SEL 12-21 09:37 → 3SCARD 12-22 15:54
PROVIDERS: ADMIT Hospitalist; ATTEND Hospitalist
PROC: 0D9670Z Drainage of Stomach with Drainage Device, Via Natural or Artificial Opening (ICD-10-PCS; 2017-12-19)
PROC: 0DB78ZX Excision of Stomach, Pylorus, Via Natural or Artificial Opening Endoscopic, Diagnostic (ICD-10-PCS; principal; 2017-12-22 07:30)
DX: K52.9 Noninfective gastroenteritis and colitis, unspecified (principal); N17.0 Acute kidney failure with tubular necrosis; E87.2 Acidosis; K50.90 Crohn's disease, unspecified, without complications; I13.0 Hypertensive heart and chronic kidney disease with heart failure and stage 1 through stage 4 chronic kidney disease, or unspecified chronic kidney disease; E11.43 Type 2 diabetes mellitus with diabetic autonomic (poly)neuropathy; E11.21 Type 2 diabetes mellitus with diabetic nephropathy; E11.22 Type 2 diabetes mellitus with diabetic chronic kidney disease; I50.9 Heart failure, unspecified; N18.1 Chronic kidney disease, stage 1; E86.0 Dehydration; K29.60 Other gastritis without bleeding; K44.9 Diaphragmatic hernia without obstruction or gangrene; E78.5 Hyperlipidemia, unspecified; J44.9 Chronic obstructive pulmonary disease, unspecified; K21.9 Gastro-esophageal reflux disease without esophagitis; I48.2 Chronic atrial fibrillation; G47.33 Obstructive sleep apnea (adult) (pediatric); G40.909 Epilepsy, unspecified, not intractable, without status epilepticus; K76.9 Liver disease, unspecified; F43.10 Post-traumatic stress disorder, unspecified; F32.9 Major depressive disorder, single episode, unspecified; F41.9 Anxiety disorder, unspecified; M06.9 Rheumatoid arthritis, unspecified; Z79.4 Long term (current) use of insulin; Z79.52 Long term (current) use of systemic steroids; Z79.899 Other long term (current) drug therapy; Z87.01 Personal history of pneumonia (recurrent); Z90.5 Acquired absence of kidney; Z87.891 Personal history of nicotine dependence; Z86.010 Personal history of colon polyps; Z90.49 Acquired absence of other specified parts of digestive tract; Z98.42 Cataract extraction status, left eye; Z98.41 Cataract extraction status, right eye; Z83.3 Family history of diabetes mellitus; Z82.49 Family history of ischemic heart disease and other diseases of the circulatory system
CPT/HCPCS: 36415; 43239; 71045; 74176; 80048; 80053; 81001; 82150; 82803; 83036; 83605; 83690; 84484; 85025; 85027; 87086; 88305; 93005; 96361; 96374; 96375; 99285

== ENCOUNTER → 2018-01-19 | Outpatient (CLI) | payer MEDICARE, OTHER ==
--- NOTE | 2018-01-19 14:39 | FL ---
EXAMINATION TYPE: FL UGI air w small bowel DATE OF EXAM: 01/19/2018 COMPARISON: NONE HISTORY: Vomiting abdominal pain TECHNIQUE: A double air contrast UGI study is performed with small bowel follow through. Images: 34 Fluoroscopy time: 2 minutes FINDINGS: Drag Out Man image of the abdomen is noncontributory. There is some mild fecal debris within the colon. Surgical clips are noted on the left abdomen and hemipelvis. The esophagus shows normal motility and emptying into the stomach. No evidence of hiatal hernia or s tricture noted. The stomach appears unremarkable. Barium readily empties into the duodenum. No intraluminal or extram ural defect is evident. No significant esophageal reflux was seen during real time performance of thi s study. The duodenal bulb and sweep are unremarkable. Ligament of Treitz is in a normal position. Small bowel follow-through: The small bowel study shows normal transit to the colon in less than 120 minutes. There is normal mucosal fold pattern throughout the small bowel. There is no evidence of a ny stricture or filling defect noted. The terminal ileum is unremarkable. IMPRESSION: 1. Normal upper GI. 2. Normal small bowel follow-through.
== END | disposition home or self-care (01) ==
LOC: RADFLMAIN 07:47
PROVIDERS: ATTEND Surgery
DX: K21.9 Gastro-esophageal reflux disease without esophagitis (principal)
CPT/HCPCS: 74249

== ENCOUNTER → 2018-02-09 | Outpatient (CLI) | payer MEDICARE, OTHER ==
--- NOTE | 2018-02-09 12:37 | US ---
EXAMINATION TYPE: US gallbladder DATE OF EXAM: 02/09/2018 COMPARISON: CT -18 CLINICAL HISTORY: K82.2 Biliary Dyskinesia, K81.1 Cholecystitis. EXAM MEASUREMENTS: Liver Length: 14.0 cm CBD: 0.5 cm Right Kidney: 11.2 x 6.3 x 6.8 cm Exam limitations due to increased overlying bowel gas. Pancreas: Obscured by bowel gas Liver: limited, wnl as seen, small intercostal windows only. However there appears to be hyperechoic echotexture of the hepatic parenchyma throughout. Gallbladder: Surgically absent CBD: wnl Right Kidney: wnl Results called to Helen in the office at the time of the exam. IMPRESSION: Although evaluation of the liver limited findings are suggestive of hepatic steatosis. Co rrelation with liver function tests is recommended.
== END | disposition home or self-care (01) ==
LOC: RADUSWWP 11:32
PROVIDERS: ATTEND Surgery
DX: K81.1 Chronic cholecystitis (principal); K82.8 Other specified diseases of gallbladder
CPT/HCPCS: 76705

== ENCOUNTER → 2018-08-12 | Outpatient (CLI) | payer OTHER ==
--- NOTE | 2018-08-12 14:46 | MR ---
EXAMINATION TYPE: MR lumbar spine wo con DATE OF EXAM: 08/12/2018 COMPARISON: MRI of the lumbar spine dated 02/02/2016 HISTORY: Low back pain TECHNIQUE: Multiplanar, multisequence images of the lumbar spine were acquired. FINDINGS: Superior endplate and body height loss appears to be on the basis of a Schmorl's node and d egenerative disc disease rather than compression deformity with only very subtle anterior superior ve rtebral body height loss. No surrounding bone marrow edema. Modic type II degenerative endplate mcginnis es are seen of the inferior endplate of L4. Multilevel disc desiccation is present. No evidence of ve rtebral body malalignment. The left kidney is either congenital or surgically absent. L1-L2: There is a small broad-based disc bulge and mild facet arthropathy without spinal canal stenos is nor neural foraminal narrowing. L2-L3: There is a broad-based disc bulge and facet arthropathy without spinal canal stenosis or neura l foraminal narrowing. Again slight mid body height loss is seen and appears chronic. L3-L4: Broad-based disc bulge is seen with facet arthropathy resulting in very minimal bilateral neur al foraminal narrowing. Spinal canal stenosis. L4-L5: There is a broad-based disc bulge with severe facet arthropathy and ligamentum flavum buckling resulting in narrowing of the spinal canal in a transverse dimension as well as anterior posterior d imension with buckling of the distal nerve roots. This results in mild bilateral neural foraminal sue rowing, left slightly greater than right given the asymmetry stability of the disc bulge. L5-S1: There is a right foraminal and right lateral disc herniation as seen on the prior exam resulti ng in severe spinal canal stenosis on the right with nerve root impingement. This also contributes to moderate left neural foraminal narrowing without spinal canal stenosis. Facet arthropathy is again s een. IMPRESSION: 1. Progressed right foraminal and lateral disc herniation creating severe spinal canal stenosis with nerve root impingement of the exiting L5 nerve root and moderate left neural foraminal narrowing. No current spinal canal stenosis at this level. 2. Progressed degenerative disc disease at L4-L5 no creating moderate spinal canal stenosis in combin ation with facet arthropathy and ligamentum flavum buckling. 3. Chronic mid body height loss of L2 is likely on the basis of degenerative disc disease with small compression deformity less likely, stable from the prior without bone marrow edema. 4. Mild multilevel degenerative disc disease within the remainder the lumbar spine as described above .
== END | disposition home or self-care (01) ==
LOC: RADMRIMAIN 12:21
PROVIDERS: ATTEND Neurological Surgery
DX: M48.061 Spinal stenosis, lumbar region without neurogenic claudication (principal); M51.16 Intervertebral disc disorders with radiculopathy, lumbar region
CPT/HCPCS: 72148